=== PATIENT | female | born 1955 | race Caucasian/White ===

== ENCOUNTER 2019-05-17 00:31 | Emergency (ER) | payer MEDICARE, OTHER, SELFPAY ==
--- NOTE | ~2019-05-17 | XR_ITS ---
XR wrist RT min 3V 05/17/2019 01:05 Indication: Right wrist pain after fall Procedure: 4 views right wrist Comparison: No prior studies for comparison. Findings: Osteopenia. There is polyarticular osteoarthritis. No acute fracture or traumatic malalignm ent. There is mild soft tissue swelling dorsal to the wrist. Impression: 1: No acute fracture. Reviewed, dictated and finalized at location A. Impression: 1: No acute fracture.
[2019-05-17 00:35] VITALS: BP 154/87; PULSE 75; RESP 20; TEMP 37.4; O2SAT 98
--- NOTE | 2019-05-17 00:53 | ED.UPPEXIN ---
HPI - Extremity Injury (Upper) General Chief Complaint: Extremity Injury, Upper Stated Complaint: PAIN Time Seen by Provider: 05/17/19 00:40 Source: patient Mode of arrival: ambulatory Limitations: no limitations History of Present Illness HPI narrative: Jennifer is a 63-year-old female patient. She presents ambulatory to the emergency room. She states that yesterday at 5:00 p.m. she fell off a couple of steps and injured her right wrist. She has pain and swelling to the dorsal aspect of the right wrist. Motion is limited due to pain. She has a minor abrasion to the volar aspect of the base of the hand. She states that she is up-to-date on her tetanus shot. Rates the pain as moderate. No numbness. No other injuries. MD complaint: injury to: right and wrist Other Extremity Injury: Right: wrist Other injuries: none Handedness: right Place: home Severity: moderate Relieving factors: rest and other ( The elevation) Exacerbating factors: movement of extremity Context: fall Treatments prior to arrival: cold therapy Related Data Home Medications Medication Instructions Recorded Confirmed amlodipine 10 mg PO DAILY 05/17/19 05/17/19 atorvastatin 20 mg PO DAILY 05/17/19 05/17/19 carvedilol 25 mg PO DAILY 05/17/19 05/17/19 Allergies Allergy/AdvReac Type Severity Reaction Status Date / Time bee pollen AdvReac Unknown Verified 05/17/19 01:03 bee venom protein (honey bee) AdvReac Unknown Verified 05/17/19 01:03 Review of Systems Review of Systems: All systems reviewed & are unremarkable except as noted in HPI and below Constitutional: Constitutional: Reports as per HPI, Reports no additional constitutional complaints, Denies chills and Denies fever(s) Eyes: Eyes: Reports as per HPI, Reports no additional eye complaints and Denies change in vision ENT: Reports system reviewed and no additional complaints, except as documented, Reports as per HPI, Denies nasal congestion and Denies sore throat Cardiovascular: Cardiovascular: Reports as per HPI, Reports no additional cardiovascular complaints, Denies chest pain and Denies radiating jaw, neck or arm pain Respiratory: Respiratory: Reports as per HPI, Reports no additional respiratory complaints, Denies cough and Denies dyspnea Gastrointestinal: Gastrointestinal: Reports as per HPI, Reports no additional gastrointestinal complaints, Denies abdominal pain, Denies nausea and Denies vomiting Genitourinary: Genitourinary: Reports no additional female genitourinary complaints Musculoskeletal: Musculoskeletal: Reports no additional musculoskeletal complaints Comments: right wrist pain Integumentary/Breasts: Skin/Breast: Reports system reviewed and no additional complaints, except as docu, Denies erythema and Denies rash Comments: abrasion to base of right Neurologic: Reports system reviewed and no additional complaints, except as documented, Denies dizziness, Denies syncope, Denies headache(s), Denies focal weakness, Denies numbness and Denies weakness Psychiatric: Psychiatric: Reports no additional psychiatric complaints and Denies anxiety Endocrine: Endocrine: Reports no additional endocrine complaints, Denies polydipsia and Denies polyuria Hematologic/Lymphatic: Hematologic/Lymphatic: Reports no additional hematologic/lymphatic complaints, Reports as per HPI, Denies easy bleeding and Denies easy bruising Allergic/Immunologic: Allergic/Immunologic: Reports no additional allergic/immunologic complaints and Reports as per HPI PMFSH Past Medical History Medical History (Updated 05/17/19 @ 01:42 by Garrick Rudd MD) Hypercholesterolemia Hypertension Surgical History Surgical History (Updated 05/17/19 @ 00:59 by Garrick Rudd MD) History of dental surgery Social History Social History (Updated 05/17/19 @ 00:59 by Garrick Rudd MD) Additional smoking assessment comments: does not smoke Alcohol use details: does not use alcohol Exam Const
--- NOTE | 2019-05-17 01:41 | PC.NURSE ---
jose wrap applied to right wrist. pt declined ice pack upon arrival to er . offered again at discharge. states has at home.
== END 2019-05-17 01:45 | disposition home or self-care (01) ==
PROVIDERS: Emergency Provider Surgery; PCP Internal Medicine
DX: S63.501A Unspecified sprain of right wrist, initial encounter (principal); W10.9XXA Fall (on) (from) unspecified stairs and steps, initial encounter
CPT/HCPCS: 73110; 99282; 99283

== ENCOUNTER 2019-12-02 10:31 | Outpatient (CLI) | payer MEDICARE, OTHER, SELFPAY ==
--- NOTE | ~2019-12-02 | MM_ITS ---
EXAMINATION: MM screening ja BI w davian HISTORY: Screening mammogram TECHNIQUE: Craniocaudal and mediolateral oblique 3-D tomosynthesis images were obtained and synthetic 2-D images were generated. CAD analysis was submitted and interpreted. COMPARISON: 11/20/2018, 11/18/2017, 11/14/2016 bilateral digital screening mammogram examinations BREAST PARENCHYMAL COMPOSITION: The breasts are heterogeneously dense, which may obscure small masses . FINDINGS: There is no evidence of suspicious mass, calcification, or architectural distortion to sugg est malignancy in either breast. There has been no suspicious interval change. IMPRESSION: 1. No mammographic evidence of malignancy. 2. Recommend routine screening mammography in one year. BI-RADS Category 1: Negative Reviewed, dictated and finalized at location A.
== END 2019-12-02 10:32 | disposition home or self-care (01) ==
LOC: CHSIMG 10:34
PROVIDERS: PCP Internal Medicine; Visit Provider Internal Medicine
DX: Z12.31 Encounter for screening mammogram for malignant neoplasm of breast (principal)
CPT/HCPCS: 77063; 77067

== ENCOUNTER → 2020-07-11 00:04 | Outpatient (CLI) | payer MEDICARE, SELFPAY ==
[2020-07-11 19:16] LABS: SARS-CoV-2 RNA PCR Negative
== END ==
PROVIDERS: PCP Internal Medicine; Visit Provider Surgery
DX: Z01.812 Encounter for preprocedural laboratory examination (principal); Z20.822 Contact with and (suspected) exposure to COVID-19
CPT/HCPCS: C9803; U0003; U0005

== ENCOUNTER 2020-07-14 01:20 | Day surgery (SDC) | payer MEDICARE, SELFPAY ==
[2020-07-04 11:04] VITALS: BMI 35.2
--- NOTE | 2020-07-13 11:29 | WPDANESEPPF ---
Anes - Initial Pre Proc Eval Procedure: Operation Date: 07/14/20 07:30 Proposed Procedures p Screening Colonoscopy - Manuel Gallardo DO Date/Time: 07/13/20 11:29 Surgeon: Manuel Gallardo DO Pre Op Diagnosis: Neoplasm Screening Patient Data Age: 64 Gender: F Height: 1.52 m Weight: 81.8 kg Allergies Allergy/AdvReac Type Severity Reaction Status Date / Time hornet venom Allergy Swelling Verified 07/14/20 06:14 Home Medications Medication Instructions Recorded Confirmed Type amlodipine 10 mg PO DAILY 05/17/19 07/04/20 History atorvastatin 20 mg PO DAILY 05/17/19 07/04/20 History carvedilol 25 mg PO BID 05/17/19 07/04/20 History alendronate 70 mg PO DAILY 07/04/20 07/04/20 History aspirin [Adult Low Dose Aspirin] 81 mg PO DAILY 07/04/20 07/04/20 History Patient hx anesthesia problems: none Family hx anesthesia problems: none [facility] Past Medical History Medical History (Updated 05/18/19 @ 00:00 by Martin Locke) Hypercholesterolemia Hypertension Surgical History Surgical History (Updated 05/17/19 @ 00:59 by Garrick MorganMD) History of dental surgery Social History Social History (Updated 05/17/19 @ 00:59 by Garrick MorganMD) Smoking status: Never smoker Additional smoking assessment comments: does not smoke Substance use type: does not use Living arrangements: with family Gender identity (if verbalized by the patient): Female Spiritual care concerns: No Anes - Eval Final PreProcedure Day of Procedure 07/13/20 11:29 Patient weight: obese Heart: regular rate and rhythm Lungs: clear to auscultation and normal air movement Airway: Mallampati scale class III Neurological: alert and oriented Last oral intake: >/= 8 hours ASA classification: III Emergent: no Anesthetic plan: proceed Anesthesia type and monitoring: general GIVS and standard monitoring Informed Consent: The patient's anesthetic plan and its attendant risks and benefits were discussed with the patient/family/POA. Questions were solicited and answers provided to the satisfaction of the patient/family/POA.
[2020-07-14 06:16] VITALS: BP 144/86; PULSE 71; RESP 20; TEMP 36.5; O2SAT 98
[2020-07-14] MEDS: LACTATED RINGERS 1,000 ML 150 ML IV CONT (06:30)
--- NOTE | 2020-07-14 07:32 | PM.IMHP ---
H&P: HPI History of Present Illness Date/Time: 07/14/20 07:32 Chief Complaint: Screening for colon cancer Narrative: this is a 64-year-old woman who presents for her 1st colonoscopy. She denies any hematochezia or melena. She denies family history of colon cancer. Review of Systems Review of Systems: All systems reviewed & are unremarkable except as noted in HPI and below Constitutional: Constitutional: Denies chills, Denies fever(s), Denies headache(s) and Denies weight loss Eyes: Eyes: Denies change in vision ENT: Denies dizziness, Denies headache(s), Denies neck mass and Denies throat swelling Cardiovascular: Cardiovascular: Denies chest pain, Denies lightheadedness and Denies dyspnea Respiratory: Respiratory: Denies cough, Denies dyspnea and Denies wheezing Gastrointestinal: Gastrointestinal: Denies abdominal pain, Denies change in bowel habits, Denies nausea and Denies vomiting Genitourinary: Genitourinary: Denies hematuria and Denies dysuria Musculoskeletal: Musculoskeletal: Reports as per HPI Integumentary/Breasts: Skin/Breast: Reports as per HPI Neurologic: Denies dizziness and Denies headache(s) Allergic/Immunologic: Allergic/Immunologic: Denies throat swelling and Denies wheezing PMFSH Past Medical History Medical History (Updated 07/14/20 @ 07:33 by Manuel Gallardo DO) Hypercholesterolemia Hypertension Surgical History Surgical History (Updated 05/17/19 @ 00:59 by Garrick MorganMD) History of dental surgery Social History Social History (Updated 05/17/19 @ 00:59 by Garrick MorganMD) Smoking status: Never smoker Additional smoking assessment comments: does not smoke Substance use type: does not use Living arrangements: with family Gender identity (if verbalized by the patient): Female Spiritual care concerns: No Meds Home Medications and Allergies Home Medications Medication Instructions Recorded Confirmed Type amlodipine 10 mg PO DAILY 05/17/19 07/04/20 History atorvastatin 20 mg PO DAILY 05/17/19 07/04/20 History carvedilol 25 mg PO BID 05/17/19 07/04/20 History alendronate 70 mg PO DAILY 07/04/20 07/04/20 History aspirin [Adult Low Dose Aspirin] 81 mg PO DAILY 07/04/20 07/04/20 History Allergies Allergy/AdvReac Type Severity Reaction Status Date / Time hornet venom Allergy Swelling Verified 07/14/20 06:14 Vital Signs Vital Signs - 24 hr 07/14/20 06:16 Temperature 36.5 C Pulse Rate 71 Respiratory Rate 20 Blood Pressure 144/86 H Pulse Oximetry 98 Exam Const: General: no acute distress and alert Orientation/consciousness: patient oriented x3 HENMT: Head: normocephalic and atraumatic Ears: hearing grossly normal bilaterally General nose exam: Normal nares present Mouth: Yes Normal oral and palatal mucosa present Eyes: Periorbital: periorbital findings normal Sclera: sclerae normal EOM: EOMs intact bilaterally Neck: Neck: normal visual inspection, no lymphadenopathy and trachea midline Chest: Chest palpation & inspection: normal inspection of the chest Resp: Effort & Inspection: normal respiratory effort Auscultation: clear to auscultation bilaterally Cardio: Jugular venous distension: no JVD Rate: regular rate Rhythm: regular rhythm Heart sounds: S1 normal heart sound present and S2 normal heart sound present Peripheral pulses: Peripheral pulses 2+ throughout GI: Inspection: normal to inspection GI Palp: Yes Soft to palpation, No Tenderness to palpation present (GI), No Guarding due to palpation present (GI) and No Rebound tenderness present Percussion: Yes normal to percussion Auscultation: normal bowel sounds : General: Yes no CVA tenderness Back/Spine/Pelvis: Back: no CVA tenderness Neuro: General: patient oriented x3, no focal motor deficits and CN's II-XI intact bilaterally Cognition (Neuro): normal cognition Speech: normal speech Motor exam (neuro): 5/5 motor strength present throughout Ext
[2020-07-14 07:54] VITALS: BP 87/44; PULSE 66; RESP 23; O2SAT 98
[2020-07-14 08:04] VITALS: BP 94/46; PULSE 73; RESP 22; O2SAT 99
== END 2020-07-14 08:27 | disposition home or self-care (01) ==
PROVIDERS: PCP Internal Medicine; Visit Provider Surgery
PROC: 0DJD8ZZ Inspection of Lower Intestinal Tract, Via Natural or Artificial Opening Endoscopic (ICD-10-PCS; CPT 45378; principal; 2020-07-14 07:30)
DX: Z12.11 Encounter for screening for malignant neoplasm of colon (principal); K92.1 Melena; E78.00 Pure hypercholesterolemia, unspecified; I10 Essential (primary) hypertension; Z79.82 Long term (current) use of aspirin; E66.9 Obesity, unspecified; Z68.37 Body mass index [BMI] 37.0-37.9, adult
CPT/HCPCS: G0121; C9803; J2704; J7120; U0003; U0005

== ENCOUNTER 2020-12-06 12:48 | Outpatient (CLI) | payer MEDICARE, SELFPAY ==
--- NOTE | ~2020-12-06 | DEXA_ITS ---
Bone Density Report Name: Jennifer Calvillo Age: 64 Sex: Female Ethnicity: White Date of : 1955 Indication: postmenopausal osteoporosis; monitoring treatment; parental hip fracture; height loss; Referring Provider: Yarelis Antoine Study: Bone densitometry was performed. Exam Date: December 06, 2020 Accession number: [id number] Bone Density: Region BMD T-score Z-score Classification AP Spine(L1-L4) 0.762 -2.6 -0.7 Osteoporosis Femoral Neck (Left) 0.589 -2.3 -0.7 Osteopenia Total Hip (Left) 0.789 -1.3 0.1 Osteopenia Femoral Neck (Right) 0.523 -2.9 -1.3 Osteoporosis Total Hip (Right) 0.724 -1.8 -0.5 Osteopenia Femoral Neck Mean 0.556 -2.6 -1.0 Osteoporosis Total Hip Mean 0.757 -1.5 -0.2 Osteopenia World Health Organization criteria for BMD impression classify patients as: Normal (T-score at or above -1.0), Osteopenia (T-score between -1.0 and -2.5), or Osteoporosis (T-score at or below -2.5). 10-year Fracture Risk: FRAX not reported because: Some T-score for Spine Total or Hip Total or Femoral Neck at or below -2.5 Treated for osteoporosis Previous Exams: Region Exam Age BMD T-score BMD Change BMD Change Date g/cm2 vs Baseline vs Previous AP Spine (L1-L4) 12/06/2020 64 0.762 -2.6 -0.010 (-1.3%) 0.036 (5.0%)# 11/20/2018 62 0.725 -2.9 -0.046 (-5.9%) -0.046 (-5.9%) 11/14/2016 60 0.771 -2.5 Total Hip(Left) 12/06/2020 64 0.789 -1.3 -0.002 (-0.2%) 0.027 (3.6%)# 11/20/2018 62 0.762 -1.5 -0.029 (-3.7%) -0.029 (-3.7%) 11/14/2016 60 0.791 -1.2 Total Hip(Right) 12/06/2020 64 0.724 -1.8 0.069 (10.5%)# 0.069 (10.5%)# 11/20/2018 62 0.655 -2.4 *Denotes significance at 95% confidence level, LSC for AP Spine = 0.022 g/cm2, LSC for Total Hip = 0.027 g/cm2 # Denotes dissimilar scan types or analysis methods Clinical Information Provided by Patient: Parent has had a hip fracture Is being treated for osteoporosis Patient maximum height was 61 No regular weight bearing exercise Onset of menses at age 10 Impression: The patient has osteoporosis, based on the Right Femoral Neck T-score. The patient has risk factors, including: parental hip fracture. No significant bone loss was observed. Discussion: PATIENT UNDER TREATMENT WITH NO SIGNIFICANT BMD LOSS SINCE LAST EXAM. In an untreated patient, BMD typically declines with age. A lack of decline or gain is usually a sign that treatment is effi
--- NOTE | ~2020-12-06 | MM_ITS ---
EXAMINATION: MM screening [facility] BI w davian HISTORY: Screening TECHNIQUE: Craniocaudal and mediolateral oblique 3-D tomosynthesis images were obtained and synthetic 2-D images were generated. CAD analysis was submitted and interpreted. COMPARISON: Comparison to multiple prior studies sequentially, with oldest reviewed study dated 08/2016. BREAST PARENCHYMAL COMPOSITION: There are scattered areas of fibroglandular density. FINDINGS: There is no evidence of suspicious mass, calcification, or architectural distortion to sugg est malignancy in either breast. There has been no suspicious interval change. IMPRESSION: 1. No mammographic evidence of malignancy. 2. Recommend routine screening mammography in one year. BI-RADS Category 1: Negative Reviewed, dictated and finalized at location A.
== END 2020-12-06 12:49 | disposition home or self-care (01) ==
LOC: CHSIMG 12:50
PROVIDERS: PCP Internal Medicine; Visit Provider Internal Medicine
DX: Z12.31 Encounter for screening mammogram for malignant neoplasm of breast (principal); M81.0 Age-related osteoporosis without current pathological fracture
CPT/HCPCS: 77063; 77067; 77080

== ENCOUNTER 2021-12-02 17:38 | Inpatient (IN) | payer MEDICARE, SELFPAY ==
--- NOTE | ~2021-12-02 | XR_ITS ---
EXAMINATION: XR surgery orthopedic DATE: 12/04/2021 17:14 INDICATION: Intertrochanteric nailing at the right hip TECHNIQUE: 4 fluoroscopic images of the right hip were obtained during procedure performed by Dr. Mallika new. Radiologist was not present for the imaging or procedure. The amount of fluoroscopy time used d uring this procedure was 6.4 minutes. COMPARISON: 12/02/2021 FINDINGS: Interval reduction and internal fixation of the previously noted intratrochanteric fracture of the proximal right femur. The fracture is fixed with an antegrade intramedullary mimi with distal interlocking screw and a pair of screws extending through the mimi into the femoral neck and head. The re is approximately 1 cortical width of residual lateral and proximal displacement of the main distal fragment relative to the femoral neck. No significant change in approximately 2 cm medial distractio n of the lesser trochanteric fragment which is not included within the fixation. No new fractures susan ntified. Widening of the right hip joint suggesting traction upon the right leg. IMPRESSION: 1. Expected appearance during open reduction and internal fixation of a comminuted intratrochanteric fracture of the proximal right femur. Reviewed, dictated and finalized at location A. IMPRESSION: 1. Expected appearance during open reduction and internal fixation of a comminu terry intratrochanteric fracture of the proximal right femur.
--- NOTE | ~2021-12-02 | XR_ITS ---
XR hip RT 2V w AP pelvis DATE: 12/02/2021 19:11 INDICATION: Anterior and lateral right hip pain after a fall. Leg externally rotated. TECHNIQUE: AP pelvis. AP and lateral views of right hip COMPARISON: None FINDINGS: There is a comminuted intra-articular fracture of the right femur with minimal displacement of the major proximal and distal fragments, some displacement of the lesser and greater trochanteric fragments, and varus deformity. The pubic symphysis and sacral iliac joints are intact. Moderate osteopenia. Hip joint spaces appear symmetric and relatively preserved. IMPRESSION: Comminuted intertrochanteric fracture of the right hip Reviewed, dictated and finalized at location A.
--- NOTE | ~2021-12-02 | XR_ITS ---
XR chest 1V DATE: 12/02/2021 19:11 INDICATION: Fall today TECHNIQUE: AP chest COMPARISON: None FINDINGS: Cardiomegaly. Aortic calcification and unfolding. No pulmonary infiltrate or consolidation, pleural effusion or pulmonary vascular congestion or pneumo thorax is detected. Diffuse osteopenia. Degenerative spurring of the thoracic spine. IMPRESSION: Cardiomegaly, aortic atherosclerosis No active pulmonary disease Osteopenia Reviewed, dictated and finalized at location A.
--- NOTE | ~2021-12-02 | XR_ITS ---
XR knee RT 2V DATE: 12/02/2021 19:12 INDICATION: Right diffuse knee pain following fall today. Chronic knee pain. TECHNIQUE: AP and lateral views COMPARISON: 10/10/2016 right knee FINDINGS: Possible corticated loose body in the posterior aspect of the knee joint. There is depressi on of the posterior articular surface of the proximal tibia on the lateral view. There is severe narrowing and prominent particular spurring at the medial compartment joint space. Th ere is periarticular spurring at the patellofemoral and lateral compartments. No obvious large joint effusion is detected. Osteopenia. IMPRESSION: Possible bony loose fragment in the posterior joint space. Consider MR of the knee for fu rther evaluation. CT may be of benefit. Tricompartment osteophytosis, most severe at the medial compartment Reviewed, dictated and finalized at location A. IMPRESSION: Possible bony loose fragment in the posterior joint space. Consider MR of the knee for further evaluation. CT may be of benefit. Tricompartment osteophytosis, most severe at the medial compartment
--- NOTE | ~2021-12-02 | CT_ITS ---
EXAMINATION: CT knee RT wo con DATE: 12/03/2021 09:46 INDICATION: Right knee pain after fall. Possible loose body on x-ray. TECHNIQUE: Computed tomography (CT) of the right knee was performed without intravenous contrast. The dose-length product was 551.89 mGy-cm. Automated exposure control and iterative reconstruction techn [employer] were employed. COMPARISON: X-ray dated 12/02/2021 FINDINGS: There is severe tricompartment osteoarthritis. There are prominent marginal osteophytes. Sm all joint effusion. There is a small corticated loose body along the posterior margin of the joint sp jose corresponding to the ossific density seen on x-ray. This likely relates to degenerative change. N o acute fracture is identified. IMPRESSION: 1. No acute fracture. 2: Severe tricompartment osteoarthritis with loose body along the posterior joint space corresponding to the x-ray finding. 3: Small joint effusion. Reviewed, dictated and finalized at location A. IMPRESSION: 1. No acute fracture. 2: Severe tricompartment osteoarthritis with loose body along the posterior uzair nt space corresponding to the x-ray finding. 3: Small joint effusion.
[2021-12-02 17:37] VITALS: BP 174/68; PULSE 75; RESP 18; TEMP 36.4; O2SAT 99
--- NOTE | 2021-12-02 17:59 | ED.LOWEXIN ---
HPI - Extremity Injury (Lower) General Chief Complaint: Extremity Injury, Lower Stated Complaint: R HIP / FEMUR S/P GLF Time Seen by Provider: 12/02/21 17:40 Source: patient Mode of arrival: EMS Limitations: no limitations History of Present Illness HPI Narrative: This is a 65 year old female that presents to the ER for right hip pain after a fall today. Reports she has been using crutches because her right knee has been bothering her. There is no recent injury to the knee. Reports she lost her balance using her crutches walking out dinner tonight. She fell onto her right hip. Since she has had pain in the right hip laterally. Worse with movement and relieved with rest. Reports decreased range of motion due to pain. Denies hitting her head, loss of consciousness, prodromal symptoms, or numbness. Related Data Home Medications Medication Instructions Recorded Confirmed amlodipine 10 mg tablet 10 mg PO DAILY 05/17/19 07/04/20 atorvastatin 20 mg tablet 20 mg PO DAILY 05/17/19 07/04/20 carvedilol 12.5 mg tablet 25 mg PO BID 05/17/19 07/04/20 alendronate 70 mg tablet 70 mg PO DAILY 07/04/20 07/04/20 aspirin 81 mg tablet 81 mg PO DAILY 07/04/20 07/04/20 Allergies Allergy/AdvReac Type Severity Reaction Status Date / Time hornet venom Allergy Swelling Verified 07/14/20 06:14 Review of Systems Review of Systems: CONSTITUTIONAL: Denies fever CARDIOVASCULAR: Denies chest pain, palpitations RESPIRATORY: Denies dyspnea. MUSCULOSKELETAL: Reports joint pain and myalgia. Denies back pain NEUROLOGIC: Denies numbness All systems reviewed & are unremarkable except as noted in HPI and below PMFSH Past Medical History Medical History (Updated 12/02/21 @ 22:29 by Felisha Yo PA-C) Hypercholesterolemia Hypertension Surgical History Surgical History (Updated 05/17/19 @ 00:59 by Garrick RuddMD) History of dental surgery Social History Social History (Updated 05/17/19 @ 00:59 by Garrick RuddMD) Smoking status: Never smoker Additional smoking assessment comments: does not smoke Alcohol use details: does not use alcohol Substance use type: does not use Gender identity (if verbalized by the patient): Female Spiritual care concerns: No Exam Narrative: GENERAL: Well-appearing, well-nourished, and in no acute distress. HEAD: Normocephalic, atraumatic. EYES: PERRLA and EOMI. ENT: Nares clear, no rhinorrhea or epistaxis. Mucous membranes moist. Oropharynx without tonsillar hypertrophy exudate or other lesions. NECK: Supple. No adenopathy or masses. No midline cervical spine tenderness CHEST: Clear to auscultation. No respiratory distress. No wheezes rales or rhonchi HEART: Regular rate and rhythm. No murmur heard. Normal peripheral pulses. EXTREMITIES: Normal range of motion, except decreased active ROM in the right knee and hip due to pain. Normal DP pulse. Normal sensation. No edema. SKIN: Warm, dry, no rash. NEURO: No focal deficits. Alert and oriented x3. PSYCH: Normal mood and affect Course Consultations Consultation #1: Spoke with Dr. Cruz about patient and work-up. Patient is to be admitted for further management of hip fracture Date: 12/02/21 Consultation #2: Spoke with hospitalist about patient and work-up who accepts admission Date: 12/02/21 Vital Signs Vital signs: Vital Signs Temperature 97.6 F 12/02/21 17:37 Pulse Rate 75 12/02/21 17:37 Respiratory Rate 18 12/02/21 17:37 Blood Pressure 174/68 H 12/02/21 17:37 Pulse Oximetry 99 12/02/21 17:37 Oxygen Delivery Room Air 12/02/21 17:37 Temperature 97.6 F 12/02/21 17:37 Pulse Rate 71 12/02/21 22:12 Respiratory Rate 16 12/02/21 22:12 Blood Pressure 126/73 12/02/21 22:12 Pulse Oximetry 97 12/02/21 22:12 Oxygen Delivery Room Air 12/02/21 17:37 MDM - Extremity Injury (Lower) MDM Narrative Medical decision making narrative: Patient presents the emergency department f
[2021-12-02] MEDS: MORPHINE SULFATE (*CRX) 4 MG/ML INJ IV PUSH (18:46)
--- NOTE | 2021-12-02 19:15 | ECG_ITS ---
Measurements Intervals [place] Rate: 70 P: 42 CA: 174 QRS: -3 QRSD: 96 T: 52 QT: 381 QTc: 413 Interpretive Statements SINUS RHYTHM INCOMPLETE RIGHT BUNDLE BRANCH BLOCK LOW QRS VOLTAGE IN PRECORDIAL LEADS BORDERLINE ECG NO PREVIOUS ECG AVAILABLE FOR COMPARISON Electronically Signed On 12-02-2021 21:37:49 CDT by Ang Garcia D.O.
[2021-12-02 19:17] VITALS: BP 145/68; PULSE 72; RESP 16; O2SAT 99
--- NOTE | 2021-12-02 19:17 | PC.NURSE ---
Assumed care of pt at this time. Pt alert and supine on stretcher, no request at this time. Pt and family updated on POC.
[2021-12-02 19:44] LABS: Basophils Absolute Auto 0.1 K/mm3 (0.0-0.1); Basophils Percent Auto 1.2 % (0.2-1.2); Eosinophils Absolute Auto 0.1 K/mm3 (0-0.3); Eosinophils Percent Auto 0.6 % (0-4.4); Hematocrit 37.4 % (37.0-47.0); Hemoglobin 12.5 g/dL (12.0-15.0); Immature Granulocyte Absolute 0.04 K/mm3 (0.00-0.031); Immature Granulocyte Percent A 0.5 % (0-0.5); Lymphocytes Absolute Auto 1.02 K/mm3 (0.9-3.2); Lymphocytes Percent Auto 12.5 % (18.3-44.2); Mean Corpuscular HGB Conc 33.4 g/dl (32-36); Mean Corpuscular Hemoglobin 32.2 pg (26-34); Mean Corpuscular Volume 96.4 fl (80-100); Mean Platelet Volume 9.8 fl (7.4-10.4); Monocytes Absolute Auto 0.6 K/mm3 (0.1-0.6); Monocytes Percent Auto 7.2 % (2.6-8.5); Neutrophils Absolute Auto 6.4 K/mm3 (1.3-6.7); Platelet Count Result 222 k/mm3 (150-375); Red Blood Count 3.88 M/mm3 (4.2-5.4); Red Cell Distribution Width 12.3 % (11.5-14.5); White Blood Count 8.2 K/mm3 (4.5-10.0)
[2021-12-02 19:56] LABS: Anion Gap 10 mmol/L (8-16); Blood Urea Nitrogen 20 mg/dL (7-17); Calcium 8.9 mg/dL (8.4-10.2); Carbon Dioxide 23 mmol/L (22-30); Chloride 106 mmol/L (98-107); Estimated CRCL calculation 41 ml/min; Estimated Glomerular Filt Rate 45; Glucose 115 mg/dL (65-110); Sodium 139 mmol/L (137-145)
[2021-12-02 20:39] VITALS: BP 147/72; PULSE 69; RESP 18; O2SAT 99
--- NOTE | 2021-12-02 21:01 | PM.IMHP ---
H&P: HPI History of Present Illness Date/Time: 12/02/21 21:01 Chief Complaint: R hip pain Narrative: This is a 65-year-old female with past medical history significant for hypertension, osteoporosis, dyslipidemia, obesity. patient presents to the emergency room after she had a fall while using her crutches she has been using crutches as of lately due to a but knee she lost her balance and fell over her right-sided unable to get up on her on EMS was called and patient was brought to the emergency room. Patient denies any loss of consciousness, she has been her usual state of health prior to these no fevers, no rigors, no chills, no cough, no sputum production, no nausea, no vomiting, no abdominal pain. patient with limited range of motion of the right lower extremity unable to bear weight on it and extreme pain with movement. Preliminary workup was significant for xray of the pelvis: IMPRESSION: Comminuted intertrochanteric fracture of the right hip patient has been admitted for further evaluation management and treatment. Review of Systems Review of Systems: Fall, unable to bear weight on right leg, unable to stand up, limited range of motion of right hip, pain with movement. Constitutional: Constitutional: Denies chills, Denies fatigue, Denies fever(s), Denies malaise, Denies night sweats, Denies poor appetite and Denies weakness Eyes: Eyes: Denies change in vision ENT: Denies dysphagia, Denies vertigo, Denies dizziness, Denies odynophagia and Denies disequilibrium Cardiovascular: Cardiovascular: Denies chest pain, Denies syncope, Denies irregular heart rhythm, Denies lightheadedness, Denies palpitations and Denies dyspnea on exertion Respiratory: Respiratory: Denies chest congestion, Denies cough, Denies excessive phlegm production, Denies pain on inspiration, Denies dyspnea and Denies dyspnea on exertion Gastrointestinal: Gastrointestinal: Denies abdominal pain, Denies dyspepsia, Denies heartburn, Denies nausea and Denies vomiting Genitourinary: Genitourinary: Denies dysuria Musculoskeletal: Musculoskeletal: Reports abnormal gait, Denies myalgias, Reports arthralgias ( Right lower extremity) and Reports limited range of motion Integumentary/Breasts: Skin/Breast: Denies rash Neurologic: Denies vertigo, Denies dizziness, Denies focal weakness and Denies Sensory deficit (Neuro) Psychiatric: Psychiatric: Reports no additional psychiatric complaints and Reports as per HPI Endocrine: Endocrine: Denies cold intolerance, Denies flushing, Denies heat intolerance, Denies polyphagia, Denies polydipsia and Denies palpitations Hematologic/Lymphatic: Hematologic/Lymphatic: Reports no additional hematologic/lymphatic complaints and Reports as per HPI Allergic/Immunologic: Allergic/Immunologic: Reports no additional allergic/immunologic complaints and Reports as per HPI PMFSH Past Medical History Medical History (Updated 12/03/21 @ 03:50 by Gianna Romero MD) Hypercholesterolemia Hypertension Surgical History Surgical History (Updated 05/17/19 @ 00:59 by Garrick MorganMD) History of dental surgery Social History Social History (Updated 05/17/19 @ 00:59 by Garrick MorganMD) Smoking status: Never smoker Alcohol intake: former Alcohol use details: does not use alcohol Substance use: never Substance use type: does not use Gender identity (if verbalized by the patient): Female Spiritual care concerns: No Meds Home Medications and Allergies Home Medications Medication Instructions Recorded Confirmed Type amlodipine 10 mg tablet 10 mg PO HS 05/17/19 12/03/21 History atorvastatin 20 mg tablet 20 mg PO DAILY 05/17/19 12/03/21 History carvedilol 12.5 mg tablet 12.5 mg PO BID 05/17/19 12/03/21 History alendronate 70 mg tablet 70 mg PO WEEKLY OSTEOPOROSIS 07/04/20 12/03/21 History aspirin 81 mg tablet 81 mg PO DAILY 07/04/20 12/03/21 History acetaminophen 650 mg 650 mg PO DAILY
[2021-12-02 22:12] VITALS: BP 126/73; PULSE 71; RESP 16; O2SAT 97
[2021-12-02 23:11] VITALS: BP 130/70; PULSE 67; RESP 18; O2SAT 94
[2021-12-02 23:36] VITALS: BP 122/56; PULSE 64; RESP 15; O2SAT 95
[2021-12-03] VITALS: BMI 36.5
[2021-12-03] MEDS: MORPHINE SULFATE (*CRX) 4 MG/ML INJ IV PUSH ×4 (00:07→19:59)
--- NOTE | 2021-12-03 00:12 | ADMGEN ---
This patient, Jennifer Calvillo, was admitted to 3 Med Surg Room 300-01 0000. Patient/family oriented to hospital policies and general routines including ID bracelet, bed and alarms, visiting hours, pain management, procedures, bathroom and other care routines, personal items, smoking policy, room service/diet, and visiting hours. Information on how to activate the Rapid Response Team has been discussed. Patient/Family are encouraged to report perceived risks to care and to ask questions if they do not understand what they are told or what they should do.
[2021-12-03 00:33] VITALS: BMI 36.5
[2021-12-03 08:00] VITALS: BP 133/63; PULSE 73; RESP 16; TEMP 36.5; O2SAT 95
[2021-12-03] MEDS: PANTOPRAZOLE SODIUM IV 40 MG VIAL IV PUSH (08:12)
--- NOTE | 2021-12-03 11:00 | PM.IMPN ---
Progress Note: A&P Assessment and Plan (1) Closed intertrochanteric fracture: Qualifiers: Encounter type: initial encounter Fracture alignment: displaced Laterality: right Qualified Code(s): S72.141A - Displaced intertrochanteric fracture of right femur, initial encounter for closed fracture Code(s): S72.143A - Displaced intertrochanteric fracture of unspecified femur, initial encounter for closed fracture Status: Acute Assessment and Plan: Hip and pelvis xray shows intertrochanteric fracture of the right hip Bed rest Ortho consulted Pain medications morphine 2mg IV Q4H, Tylenol 1000mg PO Q6H, [place] 5/325 PO Q4H 1 tab Zofran for nausea Ortho for DVT prophylaxis (2) Hypercholesterolemia: Code(s): E78.00 - Pure hypercholesterolemia, unspecified Status: Acute Assessment and Plan: Continue home atorvastatin LFTs in the am Lipid panel in the am (3) Hypertension: Code(s): I10 - Essential (primary) hypertension Status: Acute Assessment and Plan: BP is 133/63 Resume home meds amlodipine and carvedilol Trend BP Adjust therapy as indicated (4) Right knee pain: Code(s): M25.561 - Pain in right knee Status: Acute Assessment and Plan: Xray show loose bone fragments, and osteoarthritis, follow up with CT or MRI CT showed no fracture, but does show osteoarthritis with loose body and small joint effusion Ortho already on the case Will probably need to follow up outpatient once hip is healed Pain control on board Time Spent With Patient Time with patient: Greater than 35 minutes Subjective Date/time seen: 12/03/21 1100 Interval history: 12/03/211099 she appears to be in good spirits. She stated that she is fine as long as she is not moving around. She states that if she is moved around or her legs are adjusted all that she does have extreme pain. She denies any chest pain, shortness of breath, nausea, vomiting, diarrhea, constipation, weakness or fatigue. 12/02/21? 21:01 ?This is a 65-year-old female with past medical history significant for hypertension, osteoporosis, dyslipidemia,? obesity. patient presents to the emergency room after she had a fall while using her crutches she has been using crutches as of lately due to a but knee she lost her balance and fell over her right-sided unable to get up on her on EMS was called and patient was brought to the emergency room.? Patient denies any loss of consciousness, she has been her usual state of health prior to these no fevers, no rigors, no chills, no cough, no sputum production, no nausea, no vomiting, no abdominal pain. patient with limited range of motion of the right lower extremity unable to bear weight on it and extreme pain with movement.? Preliminary workup was significant for xray? of the pelvis: IMPRESSION: Comminuted intertrochanteric fracture of the right hip Review of Systems Review of Systems: All systems reviewed & are unremarkable except as noted in HPI and below Exam Const: General: cooperative, healthy appearing, no acute distress, well developed, alert, awake and uncomfortable Nutritional Appearance: well nourished Orientation/consciousness: patient oriented x3 Limitations: no limitations HENMT: Head: normal to inspection Ears: hearing grossly normal bilaterally General nose exam: Normal external nose present Mouth: Yes Normal oral and palatal mucosa present, Yes lip normal and Yes tongue normal Teeth and gingiva: abnormal tooth and associated gingiva and poor dentition Eyes: General: appearance normal, both eyes and all related structures Neck: Neck: normal visual inspection, full ROM, trachea midline and supple Chest: Chest palpation & inspection: normal inspection of the chest Resp: Effort & Inspection: normal respiratory effort and able to speak in complete sentences Auscultation: clear to ausculta
--- NOTE | 2021-12-03 13:56 | PM.CNOR ---
Assessment and Plan Assessment and plan (1) Closed intertrochanteric fracture: Qualifiers: Encounter type: initial encounter Fracture alignment: displaced Laterality: right Qualified Code(s): S72.141A - Displaced intertrochanteric fracture of right femur, initial encounter for closed fracture Code(s): S72.143A - Displaced intertrochanteric fracture of unspecified femur, initial encounter for closed fracture Status: Acute Assessment and Plan: MONSERRAT IS HERE WITH A RIGHT INTERTROCHANTERIC FEMUR FRACTURE. SHE WILL REQUIRE INSERTION OF INTRAMEDULLARY ROBSON WITH DYNAMIC HIP SCREW. DISCUSSED NONOPERATIVE AND OPERATIVE TREATMENT OPTIONS WITH THE PATIENT. THE PATIENT'S QUESTIONS WERE ANSWERED. THE PATIENT DESIRES OPERATIVE TREATMENT. RISKS OF SURGERY INCLUDING BUT NOT LIMITED TO NEUROVASCULAR DAMAGE, WOUND COMPLICATIONS, BLOOD CLOT, PULMONARY EMBOLUS, STROKE, WI, ANESTHETIC RISKS UP TO AND INCLUDING WERE REVIEWED. CONTINUED PAIN AND POSSIBLE DYSFUNCTION WERE EXPLAINED. NO GUARANTEES WERE OFFERED. THE PATIENT UNDERSTANDS AND WISHES TO PROCEED. WE WILL PROCEED ONCE SHE IS CLEARED BY THE MEDICINE TEAM History of Present Illness HPI Consult date: 12/03/21 Chief complaint: Right hip intertrochanteric fracture Narrative: MONSERRAT WAS WALKING WITH CRUTCHES AND TRIPPED AND FELL ON HER RIGHT HIP. SHE HAD SEVERE PAIN AND WAS BROUGHT TO [facility]. SHE WAS DIAGNOSED WITH A RIGHT INTERTROCHANTERIC FEMUR FRACTURE. SHE C/O RIGHT HIP AND KNEE PAIN. SHE DENIES ANY OTHER EXTREMITY PAIN. DENIES ANY BACK OR NECK PAIN. SHE DENIES ANY NLOSS OF CONCIOUSNESS. Review of Systems Constitutional: Constitutional: Reports no additional constitutional complaints Cardiovascular: Cardiovascular: Reports no additional cardiovascular complaints Respiratory: Respiratory: Reports no additional respiratory complaints Gastrointestinal: Gastrointestinal: Reports no additional gastrointestinal complaints Neurologic: Reports system reviewed and no additional complaints, except as documented Psychiatric: Psychiatric: Reports no additional psychiatric complaints [facility] Past Medical History Medical History Hypercholesterolemia Hypertension Surgical History Surgical History History of dental surgery Social History Social History Smoking status: Never smoker Alcohol intake: former Alcohol use details: does not use alcohol Substance use: never Substance use type: does not use Gender identity (if verbalized by the patient): Female Spiritual care concerns: No Meds Home Medications and Allergies Home Medications Medication Instructions Recorded Confirmed Type amlodipine 10 mg tablet 10 mg PO HS 05/17/19 12/03/21 History atorvastatin 20 mg tablet 20 mg PO DAILY 05/17/19 12/03/21 History carvedilol 12.5 mg tablet 12.5 mg PO BID 05/17/19 12/03/21 History alendronate 70 mg tablet 70 mg PO WEEKLY OSTEOPOROSIS 07/04/20 12/03/21 History aspirin 81 mg tablet 81 mg PO DAILY 07/04/20 12/03/21 History acetaminophen 650 mg 650 mg PO DAILY ARTHRITIS 12/03/21 12/03/21 History tablet,extended release Allergies Allergy/AdvReac Type Severity Reaction Status Date / Time hornet venom Allergy Swelling Verified 12/03/21 00:14 Vital Signs Vital Signs - 24 hr 12/02/21 17:37 12/02/21 19:17 12/02/21 20:39 Temperature 36.4 C Pulse Rate 75 72 69 Respiratory Rate 18 16 18 Blood Pressure 174/68 H 145/68 H 147/72 H Pulse Oximetry 99 99 99 Oxygen Delivery Room Air 12/02/21 22:12 12/02/21 23:11 12/02/21 23:36 Temperature Pulse Rate 71 67 64 Respiratory Rate 16 18 15 Blood Pressure 126/73 130/70 122/56 L Pulse Oximetry 97 94 95 Oxygen Delivery 12/03/21 08:00 12/03/21 08:00 Temperature 36.5 C Pulse Rate 73 Respiratory Rate 16 Blood P
[2021-12-03 14:34] VITALS: BP 138/66; PULSE 72; RESP 16; TEMP 36.6; O2SAT 100
[2021-12-03 15:58] VITALS: PULSE 68
[2021-12-03] MEDS: carvediloL 12.5 MG TABLET PO (15:58)
[2021-12-03] MEDS: amLODIPine BESYLATE 5 MG TABLET 10 MG PO (20:08)
[2021-12-03 22:00] VITALS: BP 152/62; PULSE 69; RESP 20; TEMP 36.5; O2SAT 94
[2021-12-04] VITALS (11 sets, daily range): BP systolic 124–152; BP diastolic 65–73; PULSE 70–84; RESP 16–20; TEMP 36.3–36.5; O2SAT 94–100
[2021-12-04 06:43] LABS: Basophils Absolute Auto 0.1 K/mm3 (0.0-0.1); Basophils Percent Auto 0.9 % (0.2-1.2); Eosinophils Absolute Auto 0.2 K/mm3 (0-0.3); Eosinophils Percent Auto 2.2 % (0-4.4); Hematocrit 34.2 % (37.0-47.0); Hemoglobin 11.3 g/dL (12.0-15.0); Immature Granulocyte Absolute 0.03 K/mm3 (0.00-0.031); Immature Granulocyte Percent A 0.4 % (0-0.5); Lymphocytes Absolute Auto 1.03 K/mm3 (0.9-3.2); Lymphocytes Percent Auto 13.4 % (18.3-44.2); Mean Corpuscular Hemoglobin 32.3 pg (26-34); Mean Corpuscular Volume 97.7 fl (80-100); Mean Platelet Volume 10.6 fl (7.4-10.4); Monocytes Absolute Auto 0.9 K/mm3 (0.1-0.6); Monocytes Percent Auto 11.6 % (2.6-8.5); Neutrophils Absolute Auto 5.5 K/mm3 (1.3-6.7); Neutrophils Percent Auto 71.5 % (45.5-73.1); Platelet Count Result 174 k/mm3 (150-375); Red Cell Distribution Width 12.2 % (11.5-14.5); White Blood Count 7.7 K/mm3 (4.5-10.0)
[2021-12-04 06:58] LABS: Alanine Aminotransferase 12 U/L (6-35); Albumin Level 3.6 g/dL (3.5-5.1); Alkaline Phosphatase 62 U/L (38-126); Anion Gap 12 mmol/L (8-16); Aspartate Amino Transferase 24 U/L (14-36); Bilirubin,Total 0.6 mg/dL (0.2-1.3); Blood Urea Nitrogen 12 mg/dL (7-17); Calcium 8.3 mg/dL (8.4-10.2); Carbon Dioxide 22 mmol/L (22-30); Chloride 106 mmol/L (98-107); Cholesterol 136 mg/dL (0-200); Estimated CRCL calculation 59 ml/min; Estimated Glomerular Filt Rate > 60; Glucose 106 mg/dL (65-110); HDL Direct 49 mg/dL; Magnesium 2.2 mg/dL (1.6-2.3); Potassium 3.6 mmol/L (3.4-5.0); Sodium 140 mmol/L (137-145); Triglycerides 83 mg/dL (<150)
[2021-12-04 07:08] LABS: LDL Cholesterol Direct 50 mg/dL
[2021-12-04] MEDS: ATORVASTATIN 20 MG TABLET PO (08:27)
[2021-12-04] MEDS: PANTOPRAZOLE SODIUM IV 40 MG VIAL IV PUSH (08:28)
[2021-12-04] MEDS: carvediloL 12.5 MG TABLET PO ×2 (08:29→18:54)
[2021-12-04] MEDS: MORPHINE SULFATE (*CRX) 4 MG/ML INJ IV PUSH ×2 (08:30→12:46)
[2021-12-04] MEDS: ACETAMINOPHEN 325 MG TABLET 650 MG PO (08:31)
--- NOTE | 2021-12-04 09:15 | PM.IMPN ---
Progress Note: A&P Assessment and Plan (1) Closed intertrochanteric fracture: Qualifiers: Encounter type: initial encounter Fracture alignment: displaced Laterality: right Qualified Code(s): S72.141A - Displaced intertrochanteric fracture of right femur, initial encounter for closed fracture Code(s): S72.143A - Displaced intertrochanteric fracture of unspecified femur, initial encounter for closed fracture Status: Acute Assessment and Plan: Hip and pelvis xray shows intertrochanteric fracture of the right hip Bed rest Ortho consulted Pain medications morphine 2mg IV Q4H, Tylenol 1000mg PO Q6H, [place] 5/325 PO Q4H 1 tab Surgery scheduled for 12/04/21 Post-op care per dagmar Westbrook for nausea Ortho for DVT prophylaxis (2) Hypercholesterolemia: Code(s): E78.00 - Pure hypercholesterolemia, unspecified Status: Acute Assessment and Plan: Continue home atorvastatin LFTs ok Lipid panel Triglycerides 83, Cholesterol 137, LDL 50, HDL 49 (3) Hypertension: Code(s): I10 - Essential (primary) hypertension Status: Acute Assessment and Plan: BP is 152/69 Resume home meds amlodipine and carvedilol Trend BP Adjust therapy as indicated (4) Right knee pain: Code(s): M25.561 - Pain in right knee Status: Acute Assessment and Plan: Xray show loose bone fragments, and osteoarthritis, follow up with CT or MRI CT showed no fracture, but does show osteoarthritis with loose body and small joint effusion Ortho already on the case Will probably need to follow up outpatient once hip is healed Pain control on board Time Spent With Patient Time with patient: Greater than 35 minutes Subjective Date/time seen: 12/04/21914 Interval history: 12/04/21914 patient seems to be doing ok at this time. She stated that anytime she moves her leg her pain goes up to a 9-10/10. Does have some constipation as well, however, post surgical procedure laxatives will be added. She denies any chest pain, shortness of breath, nausea, vomiting, diarrhea, constipation, weakness, fatigue. 12/03/21 1100 she appears to be in good spirits. She stated that she is fine as long as she is not moving around. She states that if she is moved around or her legs are adjusted all that she does have extreme pain. She denies any chest pain, shortness of breath, nausea, vomiting, diarrhea, constipation, weakness or fatigue. 12/02/21? 21:01 ?This is a 65-year-old female with past medical history significant for hypertension, osteoporosis, dyslipidemia,? obesity. patient presents to the emergency room after she had a fall while using her crutches she has been using crutches as of lately due to a but knee she lost her balance and fell over her right-sided unable to get up on her on EMS was called and patient was brought to the emergency room.? Patient denies any loss of consciousness, she has been her usual state of health prior to these no fevers, no rigors, no chills, no cough, no sputum production, no nausea, no vomiting, no abdominal pain. patient with limited range of motion of the right lower extremity unable to bear weight on it and extreme pain with movement.? Preliminary workup was significant for xray? of the pelvis: IMPRESSION: Comminuted intertrochanteric fracture of the right hip Review of Systems Review of Systems: All systems reviewed & are unremarkable except as noted in HPI and below Exam Const: General: cooperative, healthy appearing, comfortable, well developed, alert, awake and uncomfortable Nutritional Appearance: well nourished and overweight Orientation/consciousness: patient oriented x3 Limitations: no limitations HENMT: Head: normal to inspection, normocephalic and atraumatic Ears: hearing grossly normal bilaterally General nose exam: Normal external nose present Face and sinus: normal facial exam Mouth:
[2021-12-04] MEDS: KETOROLAC 15 MG/ML VIAL (*BKC) IV PUSH (14:03)
[2021-12-04] MEDS: TRANEXAMIC ACID 1,000MG/ISO100 1,000 MG/100 ML BAG 200 MG IVPB (14:04)
--- NOTE | 2021-12-04 14:16 | SUR.PREOP ---
SURGICAL HAIR REMOVAL AND SURGICAL SCRUB DEFERRED, PT STATES IT HURTS TO EVEN TOUCH MY LEG
--- NOTE | 2021-12-04 15:05 | WPDHPUPDATE1 ---
History and Physical Update Update Date/Time: 12/04/21 15:05 History and Physical has been reviewed, including an updated exam of the patient. There are NO changes in the patient's condition. Risks, benefits, and alternatives have been discussed and questions answered. Patient agrees to proceed with procedure.
--- NOTE | 2021-12-04 15:40 | WPDANESEPPF ---
Anes - Initial Pre Proc Eval Procedure: Operation Date: 12/04/21 15:00 Proposed Procedures p Right Intertrochanteric Nail - Kenny Cruz MD Date/Time: 12/04/21 15:40 Surgeon: Gianna Romero MD Pre Op Diagnosis: Right hip intertrochanteric fracture Patient Data Age: 65 Gender: F Height: 1.55 m Weight: 86.3 kg Last Vital Signs Temp 36.4 C 12/04/21 06:00 Pulse 84 12/04/21 08:29 Resp 20 12/04/21 06:00 BP 152/69 H 12/04/21 06:00 Pulse Ox 94 12/04/21 06:00 O2 Del Method Room Air 12/03/21 20:00 Allergies Allergy/AdvReac Type Severity Reaction Status Date / Time hornet venom Allergy Swelling Verified 12/03/21 00:14 Home Medications Medication Instructions Recorded Confirmed Type amlodipine 10 mg tablet 10 mg PO HS 05/17/19 12/03/21 History atorvastatin 20 mg tablet 20 mg PO DAILY 05/17/19 12/03/21 History carvedilol 12.5 mg tablet 12.5 mg PO BID 05/17/19 12/03/21 History alendronate 70 mg tablet 70 mg PO WEEKLY OSTEOPOROSIS 07/04/20 12/03/21 History aspirin 81 mg tablet 81 mg PO DAILY 07/04/20 12/03/21 History acetaminophen 650 mg 650 mg PO DAILY ARTHRITIS 12/03/21 12/03/21 History tablet,extended release Laboratory Tests 12/03/21 12/04/21 12/04/21 14:44 05:33 05:33 WBC 7.7 K/mm3 K/mm3 (4.5-10.0) RBC 3.50 M/mm3 L M/mm3 (4.2-5.4) Hgb 11.3 g/dL L g/dL (12.0-15.0) Hct 34.2 % L % (37.0-47.0) MCV 97.7 fl fl (80-100) MCH 32.3 pg pg (26-34) MCHC 33.0 g/dl g/dl (32-36) RDW 12.2 % % (11.5-14.5) Plt Count 174 k/mm3 k/mm3 (150-375) MPV 10.6 fl H fl (7.4-10.4) Immature Gran % (Auto) 0.4 % % (0-0.5) Neut % (Auto) 71.5 % % (45.5-73.1) Lymph % (Auto) 13.4 % L % (18.3-44.2) [place] % (Auto) 11.6 % H % (2.6-8.5) Eos % (Auto) 2.2 % % (0-4.4) Baso % (Auto) 0.9 % % (0.2-1.2) Lymph # (Auto) 1.03 K/mm3 K/mm3 (0.9-3.2) [place] # (Auto) 0.9 K/mm3 H K/mm3 (0.1-0.6) Eos # (Auto) 0.2 K/mm3 K/mm3 (0-0.3) Baso # (Auto) 0.1 K/mm3 K/mm3 (0.0-0.1) Abs Immat Gran (auto) 0.03 K/mm3 K/mm3 (0.00-0.031) Absolute Neuts (auto) 5.5 K/mm3 K/mm3 (1.3-6.7) Absolute Nucleated RBC 0.0 K/mm3 K/mm3 (0.0-0.012) Nucleated RBC % 0.0 % % (0.0-0.2) Sodium 140 mmol/L mmol/L (137-145) Potassium 3.6 mmol/L mmol/L (3.4-5.0) Chloride 106 mmol/L mmol/L (98-107) Carbon Dioxide 22 mmol/L mmol/L (22-30) Anion Gap 12 mmol/L mmol/L (8-16) BUN 12 mg/dL D mg/dL (7-17) Creatinine 0.80 mg/dL mg/dL (0.7-1.0) Estim Creat Clear Calc 59 ml/min ml/min Estimated GFR > 60 (59 - ) Glucose 106 mg/dL mg/dL (65-110) Calcium 8.3 mg/dL L mg/dL (8.4-10.2) Magnesium 2.2 mg/dL mg/dL (1.6-2.3) Total Bilirubin 0.6 mg/dL mg/dL (0.2-1.3) AST 24 U/L U/L (14-36) ALT 12 U/L U/L (6-35) Alkaline Phosphatase 62 U/L U/L (38-126) Total Protein 7.0 g/dL g/dL (6.3-8.2) Albumin 3.6 g/dL g/dL (3.5-5.1) Triglycerides 83 mg/dL mg/dL (<150) Cholesterol 136 mg/dL mg/dL (0-200) LDL Cholesterol Direct 50 mg/dL mg/dL HDL Direct 49 mg/dL mg/dL Antibody Screen Negative Patient hx anesthesia problems: none Family hx anesthesia problems: none Results Review: All pre-operative results and documents have been reviewed as part of the pre-operative evaluation. COUNT INCLUDES THE [facility] Past Medical History Medical History Arthritis Hypercholesterolemia Hypertension Surgical History Surgical History History of dental surgery
[2021-12-04] MEDS: ceFAZolin 2 GM/D5W 50 ML 2 GM/50 ML BAG IVPB ×2 (16:07→23:48)
--- NOTE | 2021-12-04 17:25 | W.PM.PROC2 ---
Procedure Note - Detailed Date of Procedure 12/04/21 Pre-op Diagnosis Right hip intertrochanteric fracture Post-op Diagnosis Same Procedure Performed INSERTION IM ROBSON RIGHT HIP WITH DYNAMIC HIP SCREW Surgeon Kenny Cruz MD Anesthesia General Description of Procedure THE PATIENT WAS TAKEN TO THE OPERATING ROOM AND PLACED ON A FRACTURE TABLE AFTER GIVEN GENERAL ANESTHESIA. THE RIGHT LOWER EXTREMITY WAS PLACED IN A TRACTION BOOT AND USING SOME TRACTION AND INTERNAL ROTATION THE INNER TROCHANTERIC FRACTURE WAS REDUCED TO ANATOMIC POSITION. NEXT THE LEFT LOWER EXTREMITY WAS PREPPED AND DRAPED IN THE STERILE FASHION. AN INCISION WAS MADE PROXIMAL TO THE TIP OF THE GREATER TROCHANTER AND DISSECTION CONTINUED TILL THE TIP OF THE GREATER TROCHANTER WAS PALPATED. A GUIDE PIN WAS PLACED DOWN THE FEMORAL CANAL AND PAST THE FRACTURE SITE. THIS WAS CHECKED ON FLUOROSCOPY AND FOUND TO BE IN GOOD POSITION. AN INITIAL REAMER WAS USED TO REAM THE FEMORAL CANAL. A 11 BY 200 MM ARTHREX ROBSON WAS INSERTED TILL THE CORRECT POSITION WAS IDENTIFIED ON XRAY. A GUIDE PIN WAS INSERTED THROUGH THE FEMORAL NECK AT 125 [address]GLE TILL IT REACHED THE TIP OF THE SUB CHONDRAL BONE SEEN ON XRAY. AFTER REAMING, LAG SCREW WAS INSERTED MEASURING 95 MM. XRAYS SHOWED IT TO BE IN GOOD POSITION. THE LAG SCREW WAS LOCKED PROXIMALLY WITH A LOCKING BOLT. NEXT A DEROTATIONAL SCREW WAS PLACED ACROSS THE ROBSON AND WAS IN GOOD POSITION ON XRAY. NEXT A DISTAL LOCKING SCREW WAS PLACED IN THE DYNAMIC POSITION. XRAYS SHOWED IT TO BE IN GOOD POSITION THE TRACTION WAS RELEASED. THE WOUNDS WERE WASHED. THE DEEP FASCIA WAS REPAIRED WITH #1 VICRYL SUTURE, THE SUB CUTANEOUS LAYER WITH 2-0 VICRYL, AND THE SKIN WITH ANNA MARIE. THE WOUNDS WERE WASHED AND THEN STERILE DRESSING WAS APPLIED. PATIENT WAS EXTUBATED AND SENT TO RECOVERY ROOM. Estimated Blood Loss 100 Urine Output 375 Complications No immediate complications Condition Stable Disposition PACU
[2021-12-04] MEDS: LACTATED RINGERS 1,000 ML 30 ML IV CONT ×2 (17:37→17:46)
[2021-12-04] MEDS: amLODIPine BESYLATE 5 MG TABLET 10 MG PO (20:42)
[2021-12-05] VITALS (11 sets, daily range): BP systolic 113–137; BP diastolic 63–76; PULSE 67–86; RESP 16–20; TEMP 36.1–36.9; O2SAT 96–99
[2021-12-05] MEDS: ceFAZolin 2 GM/D5W 50 ML 2 GM/50 ML BAG IVPB ×2 (05:47→14:20)
[2021-12-05 05:57] LABS: Basophils Percent Auto 0.3 % (0.2-1.2); Hematocrit 33.8 % (37.0-47.0); Hemoglobin 11.3 g/dL (12.0-15.0); Immature Granulocyte Absolute 0.05 K/mm3 (0.00-0.031); Immature Granulocyte Percent A 0.5 % (0-0.5); Lymphocytes Absolute Auto 0.38 K/mm3 (0.9-3.2); Lymphocytes Percent Auto 3.6 % (18.3-44.2); Mean Corpuscular HGB Conc 33.4 g/dl (32-36); Mean Corpuscular Volume 95.8 fl (80-100); Mean Platelet Volume 10.5 fl (7.4-10.4); Monocytes Absolute Auto 0.6 K/mm3 (0.1-0.6); Monocytes Percent Auto 5.5 % (2.6-8.5); Neutrophils Absolute Auto 9.6 K/mm3 (1.3-6.7); Neutrophils Percent Auto 90.1 % (45.5-73.1); Platelet Count Result 176 k/mm3 (150-375); Red Blood Count 3.53 M/mm3 (4.2-5.4); Red Cell Distribution Width 11.9 % (11.5-14.5); White Blood Count 10.6 K/mm3 (4.5-10.0)
[2021-12-05 06:26] LABS: Anion Gap 8 mmol/L (8-16); Blood Urea Nitrogen 15 mg/dL (7-17); Calcium 8.4 mg/dL (8.4-10.2); Carbon Dioxide 23 mmol/L (22-30); Chloride 106 mmol/L (98-107); Estimated CRCL calculation 53 ml/min; Estimated Glomerular Filt Rate > 60; Glucose 138 mg/dL (65-110); Potassium 4.3 mmol/L (3.4-5.0); Sodium 137 mmol/L (137-145)
[2021-12-05] MEDS: SENNA/DOCUSATE SODIUM TABLET 2 TAB PO ×2 (08:54→17:12)
[2021-12-05] MEDS: ASPIRIN 325 MG ENTERIC TABLET 650 MG PO (08:54)
[2021-12-05] MEDS: polyethylene glycoL 3350 17 GM POWD.PACK PO (08:56)
[2021-12-05] MEDS: ATORVASTATIN 20 MG TABLET PO (08:56)
[2021-12-05] MEDS: carvediloL 12.5 MG TABLET PO ×2 (08:56→17:13)
[2021-12-05] MEDS: HYDROcodone/acetaminophen (*CRX) 7.5-325 MG TABLET 1 TAB PO ×2 (09:07→22:39)
--- NOTE | 2021-12-05 10:06 | PM.PNORT ---
Progress Note: A&P Assessment and Plan (1) Closed intertrochanteric fracture: Qualifiers: Encounter type: initial encounter Fracture alignment: displaced Laterality: right Qualified Code(s): S72.141A - Displaced intertrochanteric fracture of right femur, initial encounter for closed fracture Code(s): S72.143A - Displaced intertrochanteric fracture of unspecified femur, initial encounter for closed fracture Status: Acute Assessment and Plan: POD #1 Continue PT/OT. TTWB. Walker. HIGH FALL RISK. Continue pain control. Ice hip. Protect skin. DVT prophylaxis with Aspirin. SCDs. Incentive Spirometry Use reviewed. Monitor Dressing. Change prior to discharge. Bowel Regimen. Dispo: SNF vs. [facility] pending progress with PT/OT and medical clearance. Subjective Subjective Date/Time Seen: 12/05/21 10:06 Post Op day: 1 Interval history: POD #1: INSERTION IM? ROBSON RIGHT HIP WITH DYNAMIC HIP SCREW Doing well. Pain well controlled. No new concerns. Concerns about discharging home. Feels she would benefit from rehab. Review of Systems Review of Systems: All systems reviewed & are unremarkable except as noted in HPI and below Constitutional: Constitutional: Denies chills, Denies fever(s), Denies headache(s), Denies lethargy and Reports weakness ENT: Denies headache(s) Cardiovascular: Cardiovascular: Denies chest pain, Denies diaphoresis, Denies lightheadedness, Denies palpitations, Denies dyspnea and Denies dyspnea on exertion Respiratory: Respiratory: Denies cough, Denies dyspnea and Denies dyspnea on exertion Gastrointestinal: Gastrointestinal: Denies constipation, Denies diarrhea, Denies nausea and Denies vomiting Genitourinary: Genitourinary: Reports urinary frequency, Denies dysuria and Denies urinary hesitancy Musculoskeletal: Musculoskeletal: Reports joint swelling (Right Hip ) and Reports limited range of motion (Right Hip due to recent surgery ) Neurologic: Denies headache(s) and Reports weakness Endocrine: Endocrine: Denies palpitations Exam Const: General: comfortable and no acute distress Resp: Effort & Inspection: normal respiratory effort Cardio: Rate: regular rate Rhythm: regular rhythm GI: Inspection: non-distended Skin: General skin exam: normal color Other: Incision right hip c/d/i. Surrounding tissue without redness/warmth. Mild swelling consistent with recent surgery. No drainage. Neuro: Cognition (Neuro): normal cognition Speech: normal speech Extrem: Right lower extremity: normal to inspection, normal capillary refill, hip/thigh Details: tenderness Location: of the hip (Thigh soft ) Location: laterally and anteriorly, swelling Location: at the hip, abnormal ROM (limited consistent with recent surgery ) Details: pain with active ROM during and pain with passive ROM during and other (Incision c/d/i. ); no deformity and no unusual warmth, knee Details: normal to inspection; no tenderness and no swelling, lower leg (Negative Barbara's Sign ) Details: normal to inspection and no edema; no tenderness, ankle (+ankle dorsiflexion/plantarflexion) Details: normal to inspection and no edema; no tenderness, no swelling and no ecchymosis and foot Details: normal capillary refill, toes with normal ROM, vascular exam Details: dorsalis pedis pulse present and motor-sensory exam Details: light-touch normal; no tenderness Objective Data Vital Signs Vital Signs: Vital Signs - 24 hr 12/04/21 17:37 12/04/21 17:55 12/04/21 18:05 Temperature 36.5 C Pulse Rate 71 76 Respiratory Rate 16 18 Blood Pressure 150/70 H 124/69 Pulse Oximetry 100 100 Oxygen Delivery Simple Face Mask Simple Face Mask Room Air Oxygen Flow Rate 10 10 12/04/21 18:10 12/04/21 18:25 12/04/21 18:38 Temperature Pulse Rate 72 71 70 Respiratory Rate 17 20 18 Blood Pressure 141/65 H 137/73 148/68 H Pulse Oximetry 97 96 98 Oxygen Delivery Nasal Cannula Nasal Cannula Nasal Cannula Oxygen Flow Rate
--- NOTE | 2021-12-05 10:30 | PM.IMPN ---
Progress Note: A&P Assessment and Plan (1) Closed intertrochanteric fracture: Qualifiers: Encounter type: initial encounter Fracture alignment: displaced Laterality: right Qualified Code(s): S72.141A - Displaced intertrochanteric fracture of right femur, initial encounter for closed fracture Code(s): S72.143A - Displaced intertrochanteric fracture of unspecified femur, initial encounter for closed fracture Status: Acute Assessment and Plan: POD 1 Hip and pelvis xray shows intertrochanteric fracture of the right hip Ortho consulted Pain medications morphine 2mg IV Q4H, Tylenol 1000mg PO Q6H, [place] 5/325 PO Q4H 1 tab Surgery scheduled for 12/04/21 Post-op care per dagmar Westbrook for nausea DVT prophylaxis aspirin 650 Weight bearing status toe touch weight bearing (2) Hypercholesterolemia: Code(s): E78.00 - Pure hypercholesterolemia, unspecified Status: Acute Assessment and Plan: Continue home atorvastatin LFTs ok Lipid panel Triglycerides 83, Cholesterol 137, LDL 50, HDL 49 (3) Hypertension: Code(s): I10 - Essential (primary) hypertension Status: Acute Assessment and Plan: BP is 135/66 Resume home meds amlodipine and carvedilol Trend BP Adjust therapy as indicated (4) Right knee pain: Code(s): M25.561 - Pain in right knee Status: Acute Assessment and Plan: Xray show loose bone fragments, and osteoarthritis, follow up with CT or MRI CT showed no fracture, but does show osteoarthritis with loose body and small joint effusion Ortho already on the case Will probably need to follow up outpatient once hip is healed Pain control on board Time Spent With Patient Time with patient: Greater than 35 minutes Subjective Date/time seen: 12/05/21 1030 Interval history: 12/05/21 1030 Patient stated that she is doing okay today. She denies any chest pain, shortness of breath, nausea, vomiting, diarrhea, constipation, weakness or fatigue. She did state that she was having a little pain especially when she moves around or tries to pull herself up in bed. She is anxiously awaiting physical therapy. She stated that she feels like she is doing great. She is having some constipation. Medications on board. 12/04/21 0915 patient seems to be doing ok at this time. She stated that anytime she moves her leg her pain goes up to a 9-10/10. Does have some constipation as well, however, post surgical procedure laxatives will be added. She denies any chest pain, shortness of breath, nausea, vomiting, diarrhea, constipation, weakness, fatigue. 12/03/21 1100 she appears to be in good spirits. She stated that she is fine as long as she is not moving around. She states that if she is moved around or her legs are adjusted all that she does have extreme pain. She denies any chest pain, shortness of breath, nausea, vomiting, diarrhea, constipation, weakness or fatigue. 12/02/21? 21:01 ?This is a 65-year-old female with past medical history significant for hypertension, osteoporosis, dyslipidemia,? obesity. patient presents to the emergency room after she had a fall while using her crutches she has been using crutches as of lately due to a but knee she lost her balance and fell over her right-sided unable to get up on her on EMS was called and patient was brought to the emergency room.? Patient denies any loss of consciousness, she has been her usual state of health prior to these no fevers, no rigors, no chills, no cough, no sputum production, no nausea, no vomiting, no abdominal pain. patient with limited range of motion of the right lower extremity unable to bear weight on it and extreme pain with movement.? Preliminary workup was significant for xray? of the pelvis: IMPRESSION: Comminuted intertrochanteric fracture of the right hip Review of Systems Review of Systems: All systems reviewed & ar
[2021-12-05] MEDS: amLODIPine BESYLATE 5 MG TABLET 10 MG PO (20:32)
[2021-12-06 06:13] LABS: Basophils Absolute Auto 0.1 K/mm3 (0.0-0.1); Basophils Percent Auto 0.5 % (0.2-1.2); Eosinophils Absolute Auto 0.1 K/mm3 (0-0.3); Eosinophils Percent Auto 0.9 % (0-4.4); Hemoglobin 10.6 g/dL (12.0-15.0); Immature Granulocyte Absolute 0.04 K/mm3 (0.00-0.031); Immature Granulocyte Percent A 0.4 % (0-0.5); Lymphocytes Percent Auto 11.5 % (18.3-44.2); Mean Corpuscular HGB Conc 33.1 g/dl (32-36); Mean Corpuscular Hemoglobin 32.5 pg (26-34); Mean Corpuscular Volume 98.2 fl (80-100); Mean Platelet Volume 10.9 fl (7.4-10.4); Monocytes Absolute Auto 1.1 K/mm3 (0.1-0.6); Monocytes Percent Auto 10.6 % (2.6-8.5); Neutrophils Absolute Auto 7.9 K/mm3 (1.3-6.7); Neutrophils Percent Auto 76.1 % (45.5-73.1); Platelet Count Result 176 k/mm3 (150-375); Red Blood Count 3.26 M/mm3 (4.2-5.4); Red Cell Distribution Width 12.2 % (11.5-14.5); White Blood Count 10.4 K/mm3 (4.5-10.0)
[2021-12-06 06:28] LABS: Alanine Aminotransferase 16 U/L (6-35); Albumin Level 3.3 g/dL (3.5-5.1); Alkaline Phosphatase 74 U/L (38-126); Anion Gap 8 mmol/L (8-16); Aspartate Amino Transferase 39 U/L (14-36); Bilirubin,Total 0.5 mg/dL (0.2-1.3); Blood Urea Nitrogen 30 mg/dL (7-17); Calcium 8.7 mg/dL (8.4-10.2); Carbon Dioxide 27 mmol/L (22-30); Chloride 105 mmol/L (98-107); Estimated CRCL calculation 48 ml/min; Estimated Glomerular Filt Rate 55; Glucose 113 mg/dL (65-110); Magnesium 2.3 mg/dL (1.6-2.3); Potassium 4.1 mmol/L (3.4-5.0); Sodium 140 mmol/L (137-145)
[2021-12-06 06:59] VITALS: BP 132/57; PULSE 72; RESP 17; TEMP 36; O2SAT 96
[2021-12-06 08:23] VITALS: PULSE 72
[2021-12-06] MEDS: ATORVASTATIN 20 MG TABLET PO (08:23)
[2021-12-06] MEDS: carvediloL 12.5 MG TABLET PO ×2 (08:23→17:19)
[2021-12-06] MEDS: SENNA/DOCUSATE SODIUM TABLET 2 TAB PO ×2 (08:23→17:18)
[2021-12-06] MEDS: ASPIRIN 325 MG ENTERIC TABLET 650 MG PO (08:23)
[2021-12-06] MEDS: polyethylene glycoL 3350 17 GM POWD.PACK PO (08:24)
[2021-12-06] MEDS: HYDROcodone/acetaminophen (*CRX) 7.5-325 MG TABLET 1 TAB PO (08:27)
[2021-12-06] MEDS: BISACODYL 10 MG SUPPOSITORY RECTAL (14:09)
[2021-12-06] MEDS: HYDROcodone/acetaminophen (*CRX) 10-325 MG TABLET 1 TAB PO ×3 (14:10→21:53)
[2021-12-06 14:59] VITALS: BP 129/58; PULSE 79; RESP 18; TEMP 36.6; O2SAT 99
--- NOTE | 2021-12-06 16:33 | PM.PNORT ---
Progress Note: A&P Assessment and Plan (1) Closed intertrochanteric fracture: Qualifiers: Encounter type: initial encounter Fracture alignment: displaced Laterality: right Qualified Code(s): S72.141A - Displaced intertrochanteric fracture of right femur, initial encounter for closed fracture Code(s): S72.143A - Displaced intertrochanteric fracture of unspecified femur, initial encounter for closed fracture Status: Acute Assessment and Plan: POD 2 DOING WELL. WILL PLAN FOR DC ONCE OK WITH MEDICINE. SHE WILL F/U IN 6 WEEKS. Subjective Subjective Date/Time Seen: 12/06/21 16:33 RIGHT HIP TROCH NAIL DOING WELL POD 2. NO CALF PAIN Exam Extrem: Other: VSS AFEBRILE DRESSING DRY NV INTACT NEG HOMANS SIGN CALF SOFT NON TENDER Objective Data Vital Signs Vital Signs: Vital Signs - 24 hr 12/05/21 17:13 12/05/21 20:00 12/05/21 20:24 Temperature 36.2 C L Pulse Rate 80 80 77 Respiratory Rate 16 18 Blood Pressure 126/63 Pulse Oximetry 97 99 Oxygen Delivery Room Air 12/06/21 06:59 12/06/21 08:23 12/06/21 08:25 Temperature 36.0 C L Pulse Rate 72 72 Respiratory Rate 17 Blood Pressure 132/57 L Pulse Oximetry 96 Oxygen Delivery Room Air 12/06/21 14:59 Temperature 36.6 C Pulse Rate 79 Respiratory Rate 18 Blood Pressure 129/58 L Pulse Oximetry 99 Oxygen Delivery Intake/Output Intake/Output: Intake & Output 12/03/21 12/04/21 12/05/21 12/06/21 23:59 23:59 23:59 23:59 Intake Total 502 891 6608 992 Output Total 975 955 275 500 Balance -375 -505 1355 492 Meds/Results Medications: Active Medications Generic Name Dose Route Start Last Admin Trade Name Freq PRN Reason Stop Dose Admin Acetaminophen 650 mg 12/04/21 18:39 Acetaminophen 325 Mg Tablet PO Q6H PRN Mild Pain (1-3) or Fever Hydrocodone Bitart/Acetaminophen 1 tab 12/06/21 11:07 12/06/21 14:10 Hydrocodone/Acetaminophen (*Crx) 10-325 Mg Tablet PO 1 tab Q4H PRN Administration Pain Rated 6 or Greater Alendronate Sodium 70 mg 12/11/21 09:00 Alendronate Sodium 70 Mg Tablet PO WEEKLY [facility] Amlodipine Besylate 10 mg 12/03/21 21:00 12/05/21 20:32 Amlodipine Besylate 5 Mg Tablet PO 10 mg HS [facility] Administration Aspirin 650 mg 12/05/21 09:00 12/06/21 08:23 Aspirin 325 Mg Enteric Tablet PO 650 mg DAILY [facility] Administration Atorvastatin Calcium 20 mg 12/03/21 10:00 12/06/21 08:23 Atorvastatin 20 Mg Tablet PO 20 mg DAILY [facility] Administration Carvedilol 12.5 mg 12/03/21 17:00 12/06/21 08:23 Carvedilol 12.5 Mg Tablet PO 12.5 mg BID [facility] Administration Diazepam 5 mg 12/04/21 18:39 Diazepam (*Crx) 5 Mg Tablet PO Q8H PRN Muscle Spasm Hydroxyzine Pamoate 50 mg 12/04/21 18:39 Hydroxyzine Pamoate 25 Mg Capsule PO Q4H PRN Itching Morphine Sulfate 3 mg 12/04/21 18:39 Morphine Sulfate (*Crx) 4 Mg/Ml Inj IV PUSH Q3H PRN Pain Rated 7-10 Naloxone HCl 0.1 mg 12/04/21 18:39 Naloxone Hcl 0.4 Mg/Ml Vial IV PUSH Q2M PRN Opiate Reversal Ondansetron HCl 4 mg 12/04/21 18:39 Ondansetron Inj 4 Mg/2 Ml Vial IV PUSH Q4H PRN Nausea And Vomiting Polyethylene Glycol 17 gm 12/05/21 09:00 12/06/21 08:24 Polyethylene Glycol 3350 17 Gm Powd.Pack PO 17 gm QAM [facility] Administration Senna/Docusate Sodium 2 tab 12/05/21 09:00 12/06/21 08:23 Senna/Docusate Sodium Tablet PO 2 tab BID [facility] Administration Radiology Results: ITS Impressions Hip/Pelvis X-Ray 12/02/21 19:26 IMPRESSION: Comminuted intertrochanteric fracture of the right hip Knee X-Ray 12/02/21 19:28 IMPRESSION: Possible bony loose fragment in the posterior joint space. Consider MR of the knee for further evaluation. CT may be of benefit. Tricompartment osteophytosis, most severe at the medial compartment Chest X-Ray 12/02/21 19:33 IMPRESSION: Cardiomegaly, aortic atheros
--- NOTE | 2021-12-06 16:50 | PM.IMPN ---
Progress Note: A&P Assessment and Plan (1) Closed intertrochanteric fracture: Qualifiers: Encounter type: initial encounter Fracture alignment: displaced Laterality: right Qualified Code(s): S72.141A - Displaced intertrochanteric fracture of right femur, initial encounter for closed fracture Code(s): S72.143A - Displaced intertrochanteric fracture of unspecified femur, initial encounter for closed fracture Status: Acute Assessment and Plan: right comminuted intertrochanteric hip fracture noted on CT. POD 2 s/p intramedullary rodding right hip with hip screw 12/04/2021 postop management per Ortho Pain medications- increase [place] 10/325 mg p.o. q.4 hours and p.r.n. morphine 2mg IV Q4H Zofran for nausea DVT prophylaxis aspirin 650 patient is toe-touch weight-bearing right lower extremity the Continue PT/OT Patient awaiting discharge to SNF rehab (2) Right knee pain: Qualifiers: Chronicity: chronic Qualified Code(s): M25.561 - Pain in right knee; G89.29 - Other chronic pain Code(s): M25.561 - Pain in right knee Status: Acute Assessment and Plan: Xray show loose bone fragments, and osteoarthritis, CT showed no fracture, but does show osteoarthritis with loose body and small joint effusion Ortho following Will probably need to follow up outpatient once hip is healed Pain control as above (3) Hypercholesterolemia: Code(s): E78.00 - Pure hypercholesterolemia, unspecified Status: Chronic Assessment and Plan: chronic, stable,Continue home atorvastatin LFTs ok Lipid panel Triglycerides 83, Cholesterol 137, LDL 50, HDL 49 (4) Hypertension: Qualifiers: Hypertension type: primary hypertension Qualified Code(s): I10 - Essential (primary) hypertension Code(s): I10 - Essential (primary) hypertension Status: Acute Assessment and Plan: chronic, stable, continue home meds amlodipine and carvedilol monitor vitals Adjust therapy as indicated (5) Constipation due to opioid therapy: Code(s): K59.03 - Drug induced constipation; T40.2X5A - Adverse effect of other opioids, initial encounter Status: Acute Assessment and Plan: patient reports no BM since admission on 12/02, abdominal pain and nausea reported on 12/05, physical exam with hypoactive bowel sounds and some flatus reported Continue MiraLax p.o. daily and senna Plus 2 tabs b.i.d. Add bisacodyl suppository x1 Awaiting BM consider KUB if symptoms worsen Plan code status: Full code Disposition: SNF rehab, will plan to discharge in a.m. if pain is improved and she has had a bowel movement Time Spent With Patient Time with patient: 15 - 25 minutes Subjective Date/time seen: 12/06/21 16:50 patient sitting up in chair. she reports significant pain this morning and somewhat improved with oral [place] although she is wondering if a stronger dose with better control her pain. No BM since prior to admission. She endorses he some flatus. No abdominal pain, nausea, emesis today, however she does endorse abdominal pain with nausea yesterday 12/05/2021. No emesis she is tolerating diet. Nursing reports patient patient is loss here reluctant to increase mobility due to pain. Review of Systems Review of Systems: All systems reviewed & are unremarkable except as noted in HPI and below Exam Narrative: General:??Well-developed female? Sitting up in the chair.? No acute distress.? Nontoxic appearing HEENT:??Normocephalic. Pupils equal and round. Sclera anicteric.? Oral mucosa moist.? Grossly normal hearing. Neck:??Supple. no JVD Respiratory:?Lungs are clear to auscultation bilaterally. RR regular and unlabored. Cardiovascular:??Regular rate and rhythm with S1-S2. No murmurs, gallops, or rubs. Gastrointestinal:??Abdomen is soft, round,nontender, and nondistended with hypoactive bowel so
[2021-12-06 17:19] VITALS: PULSE 80
[2021-12-06 19:51] VITALS: PULSE 80; RESP 18; O2SAT 99
[2021-12-06 20:15] VITALS: BP 108/52; PULSE 73; RESP 16; TEMP 36.5; O2SAT 97
[2021-12-06] MEDS: amLODIPine BESYLATE 5 MG TABLET 10 MG PO (21:53)
[2021-12-07 05:30] VITALS: BP 116/52; PULSE 78; RESP 16; TEMP 36.2; O2SAT 96
[2021-12-07 06:07] LABS: Hematocrit 32.1 % (37.0-47.0); Hemoglobin 10.5 g/dL (12.0-15.0); Mean Corpuscular HGB Conc 32.7 g/dl (32-36); Mean Corpuscular Hemoglobin 31.8 pg (26-34); Mean Corpuscular Volume 97.3 fl (80-100); Mean Platelet Volume 10.8 fl (7.4-10.4); Platelet Count Result 178 k/mm3 (150-375); Red Cell Distribution Width 12.2 % (11.5-14.5); White Blood Count 8.3 K/mm3 (4.5-10.0)
[2021-12-07 06:30] LABS: Anion Gap 12 mmol/L (8-16); Blood Urea Nitrogen 33 mg/dL (7-17); Calcium 8.7 mg/dL (8.4-10.2); Carbon Dioxide 26 mmol/L (22-30); Chloride 101 mmol/L (98-107); Estimated CRCL calculation 44 ml/min; Estimated Glomerular Filt Rate 50; Glucose 107 mg/dL (65-110); Potassium 3.8 mmol/L (3.4-5.0); Sodium 139 mmol/L (137-145)
[2021-12-07 08:33] VITALS: PULSE 78
[2021-12-07] MEDS: SENNA/DOCUSATE SODIUM TABLET 2 TAB PO (08:33)
[2021-12-07] MEDS: ASPIRIN 325 MG ENTERIC TABLET 650 MG PO (08:33)
[2021-12-07] MEDS: carvediloL 12.5 MG TABLET PO (08:33)
[2021-12-07] MEDS: ATORVASTATIN 20 MG TABLET PO (08:33)
[2021-12-07] MEDS: HYDROcodone/acetaminophen (*CRX) 10-325 MG TABLET 1 TAB PO ×2 (08:34→13:25)
--- NOTE | 2021-12-07 09:44 | PM.DS ---
DS: Admitting Diagnosis Discharge Date 12/07/2021 0944 Admitting Diagnosis Right intertrochanteric hip fracture mechanical fall right knee pain, chronic DS: Discharge Diagnosis Discharge Diagnosis (1) Closed intertrochanteric fracture: Qualifiers: Encounter type: initial encounter Fracture alignment: displaced Laterality: right Qualified Code(s): S72.141A - Displaced intertrochanteric fracture of right femur, initial encounter for closed fracture Code(s): S72.143A - Displaced intertrochanteric fracture of unspecified femur, initial encounter for closed fracture Status: Acute Assessment and Plan: right comminuted intertrochanteric hip fracture noted on CT. s/p ?intramedullary rodding right hip with hip screw 12/04/2021 postop management per Ortho Pain medications Cameron 10/325 mg p.o. q.4 hours DVT prophylaxis aspirin 650 mg daily x 28 days toe-touch weight-bearing right lower extremity per Ortho Continue PT/OT (2) Right knee pain: Qualifiers: Chronicity: chronic Qualified Code(s): M25.561 - Pain in right knee; G89.29 - Other chronic pain Code(s): M25.561 - Pain in right knee Status: Acute Assessment and Plan: Xray show loose bone fragments and osteoarthritis, CT showed no fracture, but does show osteoarthritis with loose body and small joint effusion Ortho following Pain control as above, PT/OT follow up outpatient with Ortho (3) Hypercholesterolemia: Code(s): E78.00 - Pure hypercholesterolemia, unspecified Status: Chronic Assessment and Plan: chronic, stable,Continue home atorvastatin LFTs within normal limits. Lipid panel Triglycerides 83, Cholesterol 137, LDL 50, HDL 49 (4) Hypertension: Qualifiers: Hypertension type: primary hypertension Qualified Code(s): I10 - Essential (primary) hypertension Code(s): I10 - Essential (primary) hypertension Status: Acute Assessment and Plan: chronic, stable, continue home meds amlodipine and carvedilol (5) Constipation due to opioid therapy: Code(s): K59.03 - Drug induced constipation; T40.2X5A - Adverse effect of other opioids, initial encounter Status: Acute Assessment and Plan: 12/06 patient reports no BM since admission on 12/02, abdominal pain and nausea reported on 12/05, physical exam with hypoactive bowel sounds and some flatus reported Continue MiraLax p.o. daily and senna Plus 2 tabs b.i.d. bisacodyl suppository x1 given 12/06/21 without effect. 12/07 Fleet enema x1 ordered. 1 BM at 1300. DS: Summary Hospital Course Reason for hospitalization: Right hip pain Hospital Course: Jennifer Calvillo is a?65-year-old female with hypertension, osteoporosis, dyslipidemia,?obesity and arthritis, who patient presented to the emergency room on 12/02/21 following a fall while using crutches. She reported using crutches due to worsening right knee pain without reported trauma. She endorsed losing her balance and falling on her right-side. She was unable to get up on her own and EMS was called. She was unable to bear weight on ther right leg and reported severe, constant pain. She denied loss of consciousness. She was in her usual state of health, aside from right knee pain, prior to admission. She denied fevers, rigors, chills, cough, sputum production, nausea, vomiting, or abdominal pain. In the ED, she was afebrile with stable vitals, except for elevated BP 174/68. Lab work showed mildly elevated BUN 20, creatinine 1.2 and GFR 41. CMP and CBC were otherwise unremarkable. EKG was without ischemic changes or arrhythmia. Pelvis x-ray?showed comminuted intertrochanteric fracture of the right hip. She was admitted to the medical floor for further surgical evaluation. Orthopedics was consulted. The patient underwent?intramedullary rodding right hip with hip screw on 12/04/2021. She had unremarkable
[2021-12-07 12:14] LABS: EDCOVIDSCREEN Negative (Negative)
== END 2021-12-07 14:21 | disposition swing bed (61) | DRG 482 ==
LOC: ANHED 22:29 → ANH3MEDSUR 23:12
PROVIDERS: Nurse Practitioner; Orthopaedic Surgery; Physician Assistant; Admitting Provider Internal Medicine; Emergency Provider Emergency Medicine; PCP Internal Medicine; Visit Provider Nurse Practitioner Family
PROC: 0QS634Z Reposition Right Upper Femur with Internal Fixation Device, Percutaneous Approach (ICD-10-PCS; CPT 27245; principal; 2021-12-04 15:00)
DX: S72.141A Displaced intertrochanteric fracture of right femur, initial encounter for closed fracture (principal); W18.39XA Other fall on same level, initial encounter; E78.00 Pure hypercholesterolemia, unspecified; I10 Essential (primary) hypertension; M81.0 Age-related osteoporosis without current pathological fracture; E66.9 Obesity, unspecified; M25.561 Pain in right knee; M23.41 Loose body in knee, right knee; M17.11 Unilateral primary osteoarthritis, right knee; Z20.822 Contact with and (suspected) exposure to COVID-19; K59.03 Drug induced constipation; T40.2X5A Adverse effect of other opioids, initial encounter; Z79.899 Other long term (current) drug therapy
CPT/HCPCS: 36415; 71045; 73502; 73560; 73700; 80048; 80053; 80061; 83735; 85025; 85027; 86850; 86900; 86901; 87426; 93005; 96374; 96375; 96376; 97110; 97116; 97162; 97165; 97530; 97535; 99199; 99285; A9270; C1713; C9113; C9803; G0378; J0690; J1100; J1885; J2250; J2270; J2405; J2704; J3010; J7120

== ENCOUNTER 2021-12-07 14:54 | Inpatient (IN) | payer MEDICARE, SELFPAY ==
[2021-12-07 15:05] VITALS: BP 107/64; PULSE 73; RESP 18; TEMP 36.2; O2SAT 96; BMI 36.1
--- NOTE | 2021-12-07 15:05 | ADMGEN ---
This patient, Jennifer Calvillo, was admitted to 2nd Floor Room 203-1 as a skilled swing bed due to right hip ORIF. Patient/family oriented to hospital policies and general routines including ID bracelet, bed and alarms, visiting hours, pain management, procedures, bathroom and other care routines, personal items, smoking policy, room service/diet, and visiting hours. Information on how to activate the Rapid Response Team has been discussed. Patient/Family are encouraged to report perceived risks to care and to ask questions if they do not understand what they are told or what they should do.
[2021-12-07 15:56] VITALS: BMI 36.1
[2021-12-07] MEDS: HYDROcodone/acetaminophen (*CRX) 10-325 MG TABLET 1 TAB PO (17:10)
[2021-12-07 17:11] VITALS: PULSE 73
[2021-12-07] MEDS: carvediloL 12.5 MG TABLET PO (17:11)
[2021-12-07] MEDS: SENNA/DOCUSATE SODIUM TABLET 2 TAB PO (17:11)
--- NOTE | 2021-12-07 20:23 | PM.IMHP ---
H&P: HPI History of Present Illness Date/Time: 12/07/21 20:23 Chief Complaint: Swing rehab right hip replacement Narrative: This is a?65-year-old female with hypertension, osteoporosis, dyslipidemia,?obesity and arthritis, who had a fall while on crutches on 12/02/21. Mrs Calvillo underwent?intramedullary rodding right hip with hip screw on 12/04/2021. PT/OT has seen patient and recommended that she swing. The patient is toe-touch weight-bearing to E. She had significant hip pain postop and required increased dosing of narcotics. Right knee CT has showing arthritis no acute fracture, severe tricompartment osteoarthritis with loose body along the posterior joint space and small joint effusion. Patient has been sitting on the side of the bed and states pain in 2/10. Patient states she is able to eat and drink and denies a lot of pain and she only has pain 2 when she is just sitting and with movement it can be a 8 /10 but the pain medication helps significantly. Patient vitals are stable 97 4, 72 heart rate respirations 16, blood pressure 119/59 96% on room air. We have accepted patient into our swing serves. ? Review of Systems Review of Systems: right hip pain All systems reviewed & are unremarkable except as noted in HPI and below PMFSH Past Medical History Medical History Arthritis Hypercholesterolemia Hypertension Surgical History Surgical History History of dental surgery Social History Social History Smoking status: Never smoker Alcohol intake: never Alcohol use details: does not use alcohol Substance use: never Substance use type: does not use Gender identity (if verbalized by the patient): Female Spiritual care concerns: No Meds Home Medications and Allergies Home Medications Medication Instructions Recorded Confirmed Type amlodipine 10 mg tablet 10 mg PO HS 05/17/19 12/07/21 History atorvastatin 20 mg tablet 20 mg PO DAILY 05/17/19 12/07/21 History carvedilol 12.5 mg tablet 12.5 mg PO BID 05/17/19 12/07/21 History alendronate 70 mg tablet 70 mg PO WEEKLY OSTEOPOROSIS 07/04/20 12/07/21 History aspirin 81 mg tablet 81 mg PO DAILY 07/04/20 12/07/21 History acetaminophen 650 mg 650 mg PO DAILY ARTHRITIS #7 tabs 12/07/21 12/07/21 Rx tablet,extended release aspirin 325 mg tablet,delayed 650 mg PO DAILY 26 days #52 tabs 12/07/21 12/07/21 Rx release bisacodyl 10 mg rectal suppository 10 mg RECTAL DAILY PRN 12/07/21 12/07/21 Rx constipation #12 ea hydrocodone 10 mg-acetaminophen 1 tablet PO Q6H PRN pain #10 tabs 12/07/21 12/07/21 Rx 325 mg tablet polyethylene glycol 3350 17 gram 17 g PO QAM #14 ea 12/07/21 12/07/21 Rx oral powder packet (Miralax) sennosides 8.6 mg-docusate sodium 2 tab-cap PO BID #14 tabs 12/07/21 12/07/21 Rx 50 mg tablet (Senokot-S) Allergies Allergy/AdvReac Type Severity Reaction Status Date / Time hornet venom Allergy Swelling Verified 12/03/21 00:14 Vital Signs Vital Signs - 24 hr 12/07/21 15:05 12/07/21 17:11 Temperature 97.2 F L Pulse Rate 73 73 Respiratory Rate 18 Blood Pressure 107/64 Pulse Oximetry 96 Oxygen Delivery Room Air Exam Narrative: GENERAL:Well-appearing, well-nourished, and in no acute distress. HEAD:Normocephalic, atraumatic. EYES: PERRLA and EOMI. ENT: Nares clear, no rhinorrhea or epistaxis. Mucous membranes moist. NECK: Supple. CHEST: Clear to auscultation. No respiratory distress. HEART: Regular rate and rhythm. Normal peripheral pulses. ABDOMEN: Soft, nontender, nondistended, normal active bowel sounds. EXTREMITIES: Decreased range of motion bilaterally due to pain mild right leg edema slight shortened and externally rotated tender at incision site. SKIN: Warm, dry, no rash. NEURO: No focal deficits. Alert and oriented x3. Asse
[2021-12-07] MEDS: amLODIPine BESYLATE 5 MG TABLET 10 MG PO (20:49)
[2021-12-07] MEDS: PANTOPRAZOLE 40 MG TABLET PO (20:50)
[2021-12-07 23:09] VITALS: BP 119/59; PULSE 72; RESP 16; TEMP 36.3; O2SAT 96
[2021-12-08] MEDS: HYDROcodone/acetaminophen (*CRX) 10-325 MG TABLET 1 TAB PO ×3 (06:32→21:29)
[2021-12-08 07:35] VITALS: BP 109/59; PULSE 84; RESP 16; TEMP 37; O2SAT 96
[2021-12-08] MEDS: SENNA/DOCUSATE SODIUM TABLET 2 TAB PO ×2 (09:11→16:23)
[2021-12-08] MEDS: ASPIRIN 325 MG ENTERIC TABLET 650 MG PO (09:11)
[2021-12-08] MEDS: PANTOPRAZOLE 40 MG TABLET PO ×2 (09:11→21:14)
[2021-12-08] MEDS: ATORVASTATIN 10 MG TABLET 20 MG PO (09:11)
[2021-12-08] MEDS: ACETAMINOPHEN 325 MG TABLET 650 MG PO (09:11)
[2021-12-08 09:12] VITALS: PULSE 76
[2021-12-08] MEDS: carvediloL 12.5 MG TABLET PO ×2 (09:12→16:23)
[2021-12-08] MEDS: polyethylene glycoL 3350 17 GM POWD.PACK PO (09:12)
[2021-12-08 16:23] VITALS: PULSE 78
[2021-12-08 16:35] VITALS: BP 124/86; PULSE 78; RESP 16; TEMP 36.7; O2SAT 97
[2021-12-08] MEDS: amLODIPine BESYLATE 5 MG TABLET 10 MG PO (21:14)
--- NOTE | 2021-12-08 22:10 | PC.NURSE ---
Pt assisted to BR c SBA and use of walker, pt uses toe-touch and tolerates well. Pt repositioned in bed, lights dimmed and call olsen in pt reach.
--- NOTE | 2021-12-09 01:10 | PC.NURSE ---
Pt sleeping, RR even and nonlabored, no distress noted, call olsen in pt reach
[2021-12-09 03:00] VITALS: BP 118/71; PULSE 80; RESP 18; TEMP 36.6; O2SAT 97
--- NOTE | 2021-12-09 04:00 | PC.NURSE ---
Pt sleeping, rr even and nonlabored, call olsen in pt reach.
[2021-12-09] MEDS: HYDROcodone/acetaminophen (*CRX) 10-325 MG TABLET 1 TAB PO ×3 (05:56→18:31)
[2021-12-09 08:00] VITALS: BP 121/66; PULSE 79; RESP 16; TEMP 36.6; O2SAT 95
[2021-12-09] MEDS: polyethylene glycoL 3350 17 GM POWD.PACK PO (08:53)
[2021-12-09] MEDS: ASPIRIN 325 MG ENTERIC TABLET 650 MG PO (08:55)
[2021-12-09 08:56] VITALS: PULSE 79
[2021-12-09] MEDS: carvediloL 12.5 MG TABLET PO ×2 (08:56→17:12)
[2021-12-09] MEDS: ACETAMINOPHEN 325 MG TABLET 650 MG PO (08:57)
[2021-12-09] MEDS: SENNA/DOCUSATE SODIUM TABLET 2 TAB PO ×2 (08:57→17:12)
[2021-12-09] MEDS: ATORVASTATIN 10 MG TABLET 20 MG PO (08:58)
[2021-12-09] MEDS: PANTOPRAZOLE 40 MG TABLET PO ×2 (08:58→20:47)
[2021-12-09 16:00] VITALS: BP 113/70; PULSE 71; RESP 16; TEMP 36.3; O2SAT 100
[2021-12-09 17:12] VITALS: PULSE 71
[2021-12-09] MEDS: amLODIPine BESYLATE 5 MG TABLET 10 MG PO (20:47)
[2021-12-10] VITALS: BP 108/53; PULSE 68; RESP 18; TEMP 35.9; O2SAT 97
[2021-12-10 08:00] VITALS: BP 126/61; PULSE 79; RESP 16; TEMP 36.6; O2SAT 100
[2021-12-10] MEDS: polyethylene glycoL 3350 17 GM POWD.PACK PO (08:33)
[2021-12-10] MEDS: ASPIRIN 325 MG ENTERIC TABLET 650 MG PO (08:33)
[2021-12-10] MEDS: HYDROcodone/acetaminophen (*CRX) 10-325 MG TABLET 1 TAB PO ×3 (08:34→20:08)
[2021-12-10] MEDS: ACETAMINOPHEN 325 MG TABLET 650 MG PO (08:34)
[2021-12-10 08:35] VITALS: PULSE 80
[2021-12-10] MEDS: ATORVASTATIN 10 MG TABLET 20 MG PO (08:35)
[2021-12-10] MEDS: carvediloL 12.5 MG TABLET PO ×2 (08:35→17:26)
[2021-12-10] MEDS: SENNA/DOCUSATE SODIUM TABLET 2 TAB PO ×2 (08:35→17:26)
[2021-12-10] MEDS: PANTOPRAZOLE 40 MG TABLET PO ×2 (08:36→20:07)
[2021-12-10] MEDS: ALENDRONATE SODIUM 70 MG TABLET PO (08:36)
[2021-12-10 16:00] VITALS: BP 115/60; PULSE 74; RESP 16; TEMP 36.2; O2SAT 96
[2021-12-10 17:26] VITALS: PULSE 74
--- NOTE | 2021-12-10 18:45 | PC.NURSE ---
Dressings changed to incisions. Well approximated. Hung in place. No s/s redness or infection. Patient tolerated well.
[2021-12-10] MEDS: amLODIPine BESYLATE 5 MG TABLET 10 MG PO (20:07)
[2021-12-11] VITALS: BP 121/76; PULSE 73; RESP 20; TEMP 36.3; O2SAT 98
[2021-12-11] MEDS: HYDROcodone/acetaminophen (*CRX) 10-325 MG TABLET 1 TAB PO ×3 (05:35→20:50)
[2021-12-11 08:00] VITALS: BP 145/80; PULSE 83; RESP 16; TEMP 36.2; O2SAT 98
[2021-12-11] MEDS: ACETAMINOPHEN 325 MG TABLET 650 MG PO (09:15)
[2021-12-11] MEDS: polyethylene glycoL 3350 17 GM POWD.PACK PO (09:20)
[2021-12-11] MEDS: SENNA/DOCUSATE SODIUM TABLET 2 TAB PO ×2 (09:30→16:53)
[2021-12-11] MEDS: ASPIRIN 325 MG ENTERIC TABLET 650 MG PO (09:38)
[2021-12-11 09:39] VITALS: PULSE 80
[2021-12-11] MEDS: carvediloL 12.5 MG TABLET PO ×2 (09:39→16:53)
[2021-12-11] MEDS: PANTOPRAZOLE 40 MG TABLET PO ×2 (09:39→20:50)
[2021-12-11] MEDS: ATORVASTATIN 10 MG TABLET 20 MG PO (11:14)
[2021-12-11 15:45] VITALS: BP 103/51; PULSE 64; RESP 16; TEMP 36.3; O2SAT 96
[2021-12-11 16:53] VITALS: PULSE 65
[2021-12-11 20:00] VITALS: PULSE 65; RESP 16; O2SAT 96
[2021-12-11] MEDS: amLODIPine BESYLATE 5 MG TABLET 10 MG PO (20:50)
[2021-12-11] MEDS: traZODone HCL 50 MG TABLET PO (20:50)
[2021-12-12] VITALS: BP 130/66; PULSE 68; RESP 16; TEMP 36.4; O2SAT 98
[2021-12-12] MEDS: HYDROcodone/acetaminophen (*CRX) 10-325 MG TABLET 1 TAB PO ×3 (05:23→20:33)
[2021-12-12 08:00] VITALS: BP 136/66; PULSE 70; RESP 16; TEMP 37.1; O2SAT 98
[2021-12-12] MEDS: SENNA/DOCUSATE SODIUM TABLET 2 TAB PO ×2 (09:18→16:58)
[2021-12-12] MEDS: polyethylene glycoL 3350 17 GM POWD.PACK PO (09:18)
[2021-12-12 09:19] VITALS: PULSE 85
[2021-12-12] MEDS: carvediloL 12.5 MG TABLET PO ×2 (09:19→16:57)
[2021-12-12] MEDS: ASPIRIN 325 MG ENTERIC TABLET 650 MG PO (09:20)
[2021-12-12] MEDS: ATORVASTATIN 10 MG TABLET 20 MG PO (09:20)
[2021-12-12] MEDS: ACETAMINOPHEN 325 MG TABLET 650 MG PO (09:21)
[2021-12-12] MEDS: PANTOPRAZOLE 40 MG TABLET PO ×2 (09:23→20:33)
--- NOTE | 2021-12-12 12:59 | PC.NURSE ---
Patient amb to/from bathroom using walker and gait belt with standby assist. Patient tolerated well.
--- NOTE | 2021-12-12 15:16 | PC.NURSE ---
Pt sitting in chair visiting c family. Pt reports pain medication has helped ease her pain at this time. Pt given ice pack to apply to her Rt hip while sitting in chair, no c/o or concerns, call olsen at pt side.
[2021-12-12 16:00] VITALS: BP 124/68; PULSE 84; RESP 20; TEMP 36.8; O2SAT 98
[2021-12-12 16:57] VITALS: PULSE 84
[2021-12-12] MEDS: amLODIPine BESYLATE 5 MG TABLET 10 MG PO (20:32)
[2021-12-13] VITALS: BP 153/55; PULSE 78; RESP 18; TEMP 36.4; O2SAT 97
[2021-12-13] MEDS: HYDROcodone/acetaminophen (*CRX) 10-325 MG TABLET 1 TAB PO ×2 (02:42→19:21)
[2021-12-13 08:00] VITALS: BP 107/62; PULSE 80; RESP 16; TEMP 36.5; O2SAT 97
--- NOTE | 2021-12-13 08:45 | WPDPN ---
Progress Note: A&P Assessment and Plan (1) Constipation due to opioid therapy: Code(s): K59.03 - Drug induced constipation; T40.2X5A - Adverse effect of other opioids, initial encounter Status: Acute Assessment and Plan: Having daily BM Daily MiraLAX and colace (2) Right knee pain: Qualifiers: Chronicity: chronic Qualified Code(s): M25.561 - Pain in right knee; G89.29 - Other chronic pain Code(s): M25.561 - Pain in right knee Status: Acute Assessment and Plan: controlled Physical therapy to evaluate and treat Hydrocodone for pain Ice as needed Elevate Toe-touch weightbearing (3) Hypertension: Qualifiers: Hypertension type: primary hypertension Qualified Code(s): I10 - Essential (primary) hypertension Code(s): I10 - Essential (primary) hypertension Status: Acute Assessment and Plan: Stable Continue home meds vs as ordered will adjust medications as ordered (4) Closed intertrochanteric fracture: Qualifiers: Encounter type: initial encounter Fracture alignment: displaced Laterality: right Qualified Code(s): S72.141A - Displaced intertrochanteric fracture of right femur, initial encounter for closed fracture Code(s): S72.143A - Displaced intertrochanteric fracture of unspecified femur, initial encounter for closed fracture Status: Acute Assessment and Plan: Physical therapy Toe-touch weightbearing Fall precaution (5) Weakness: Code(s): R53.1 - Weakness Status: Acute Assessment and Plan: ? Exhibit tolerance during physical activity as evidenced by a normal fluctuation of vital signs during physical activity. ? Patient will be ability to perform required activities of daily living. ? Provide appropriate nutrition for healing and strength. ? Use appropriate to prevent falls. ? Continue physical therapy/occupational therapy. Subjective Date/time seen: 12/13/21 08:45 Interval history: She has no complaints she notes that her physical therapy is going well, she is tolerating her meals she is having regular bowel movements. Patient notes that she does have a difficult time sleeping I will prescribe her Benadryl she is unsure if she has a reaction to trazodone or tramadol would avoid these medications. The patient denies SOB, CP, palpitation, extremity numbness, lightheadedness, dizziness, constipation, diarrhea, chills, or fever. Review of Systems Review of Systems: A 14 organ system Review of Systems was performed and pertinent positives included in the HPI, otherwise remaining ROS is negative. All systems reviewed & are unremarkable except as noted in HPI and below Exam Narrative: GENERAL:Well-appearing, well-nourished, and in no acute distress. HEAD:Normocephalic, atraumatic. EYES: PERRLA and EOMI. ENT: Nares clear, no rhinorrhea or epistaxis. Mucous membranes moist. NECK: Supple. CHEST: Clear to auscultation. No respiratory distress. HEART: Regular rate and rhythm. Normal peripheral pulses. ABDOMEN: Soft, nontender, nondistended, normal active bowel sounds. EXTREMITIES: Decreased range of motion bilaterally due to surgical procedure mild right leg edema. SKIN: Warm, dry, no rash. NEURO: No focal deficits. Alert and oriented x3. Objective Data Vital Signs Vital Signs: Vital Signs - 24 hr 12/12/21 09:19 12/12/21 16:00 12/12/21 16:57 Temperature 98.2 F Pulse Rate 85 84 84 Respiratory Rate 20 Blood Pressure 124/68 Pulse Oximetry 98 Oxygen Delivery Room Air 12/13/21 00:00 12/13/21 08:00 Temperature 97.5 F L 97.7 F Pulse Rate 78 80 Respiratory Rate 18 16 Blood Pressure 153/55 H 107/62 Pulse Oximetry 97 97 Oxygen Delivery Room Air Room Air Intake/Output Intake/Output: Intake & Output 12/10/21 12/11/21 12/12/21 12/13/21 23:59 23:59 23:59 23:59 Intake Total 1640 1537 1350 300 Balance 1640 1537 1350 300 Meds/Result
[2021-12-13] MEDS: SENNA/DOCUSATE SODIUM TABLET 2 TAB PO ×2 (09:10→17:40)
[2021-12-13] MEDS: polyethylene glycoL 3350 17 GM POWD.PACK PO (09:12)
[2021-12-13] MEDS: ACETAMINOPHEN 325 MG TABLET 650 MG PO (09:12)
[2021-12-13] MEDS: ATORVASTATIN 10 MG TABLET 20 MG PO (09:12)
[2021-12-13] MEDS: ASPIRIN 325 MG ENTERIC TABLET 650 MG PO (09:12)
[2021-12-13 09:13] VITALS: PULSE 78
[2021-12-13] MEDS: carvediloL 12.5 MG TABLET PO ×2 (09:13→17:40)
[2021-12-13] MEDS: PANTOPRAZOLE 40 MG TABLET PO ×2 (09:14→20:36)
[2021-12-13 16:00] VITALS: BP 158/70; PULSE 73; RESP 16; TEMP 36.4; O2SAT 98
[2021-12-13 17:40] VITALS: PULSE 70
[2021-12-13] MEDS: ACETAMINOPHEN 500 MG TABLET 1000 MG PO (17:41)
[2021-12-13] MEDS: amLODIPine BESYLATE 5 MG TABLET 10 MG PO (20:36)
[2021-12-14 04:20] VITALS: BP 135/61; PULSE 61; RESP 18; TEMP 36.4; O2SAT 96
[2021-12-14] MEDS: HYDROcodone/acetaminophen (*CRX) 10-325 MG TABLET 1 TAB PO ×3 (04:34→19:27)
--- NOTE | 2021-12-14 04:35 | PC.NURSE ---
Ice pack provided.
[2021-12-14 05:16] LABS: Hematocrit 31.6 % (35.0-42.0); Hemoglobin 10.2 g/dL (11.7-13.8); Mean Corpuscular HGB Conc 32.3 g/dL (32.0-36.0); Mean Corpuscular Hemoglobin 31.7 pg (27.0-31.0); Mean Corpuscular Volume 98.1 fL (78.0-102.0); Mean Platelet Volume 10.2 fl (9.2-11.8); Platelet Count Result 288 K/mm3 (150-420); Red Blood Count 3.22 M/mm3 (4.20-5.40); White Blood Count 7.2 K/mm3 (4.8-10.8)
[2021-12-14 05:33] LABS: Anion Gap 7 mmol/L (8-16); Blood Urea Nitrogen 17 mg/dL (7-18); Calcium 8.3 mg/dL (8.5-10.1); Carbon Dioxide 27 mmol/L (21-32); Chloride 109 mmol/L (98-108); Estimated CRCL calculation 43 ml/min; Estimated Glomerular Filt Rate 51; Glucose 98 mg/dL (70-99); Osmolality Calculated 297 mOsm/kg (285-295); Sodium 143 mmol/L (136-145)
[2021-12-14 08:00] VITALS: BP 117/55; PULSE 79; RESP 16; TEMP 36.6; O2SAT 98
[2021-12-14] MEDS: ACETAMINOPHEN 325 MG TABLET 650 MG PO (08:27)
[2021-12-14] MEDS: polyethylene glycoL 3350 17 GM POWD.PACK PO (08:27)
[2021-12-14] MEDS: ATORVASTATIN 10 MG TABLET 20 MG PO (08:28)
[2021-12-14] MEDS: SENNA/DOCUSATE SODIUM TABLET 2 TAB PO ×2 (08:28→16:42)
[2021-12-14 08:29] VITALS: PULSE 82
[2021-12-14] MEDS: PANTOPRAZOLE 40 MG TABLET PO ×2 (08:29→20:27)
[2021-12-14] MEDS: carvediloL 12.5 MG TABLET PO ×2 (08:29→16:42)
[2021-12-14] MEDS: ASPIRIN 325 MG ENTERIC TABLET 650 MG PO (08:30)
[2021-12-14 16:00] VITALS: BP 121/67; PULSE 67; RESP 16; TEMP 36.6; O2SAT 98
[2021-12-14 16:42] VITALS: PULSE 67
[2021-12-14] MEDS: amLODIPine BESYLATE 5 MG TABLET 10 MG PO (20:27)
[2021-12-15] VITALS (7 sets, daily range): BP systolic 115–137; BP diastolic 53–68; PULSE 64–78; RESP 16–18; TEMP 36.4–36.8; O2SAT 94–98
[2021-12-15] MEDS: HYDROcodone/acetaminophen (*CRX) 10-325 MG TABLET 1 TAB PO ×3 (05:27→21:07)
[2021-12-15] MEDS: polyethylene glycoL 3350 17 GM POWD.PACK PO (08:37)
[2021-12-15] MEDS: ACETAMINOPHEN 325 MG TABLET 650 MG PO (08:37)
[2021-12-15] MEDS: SENNA/DOCUSATE SODIUM TABLET 2 TAB PO ×2 (08:38→17:19)
[2021-12-15] MEDS: ASPIRIN 325 MG ENTERIC TABLET 650 MG PO (08:38)
[2021-12-15] MEDS: ATORVASTATIN 10 MG TABLET 20 MG PO (08:39)
[2021-12-15] MEDS: PANTOPRAZOLE 40 MG TABLET PO ×2 (08:39→20:36)
[2021-12-15] MEDS: carvediloL 12.5 MG TABLET PO ×2 (08:39→17:19)
--- NOTE | 2021-12-15 18:43 | PC.NURSE ---
Dressings changed and CDI. No S/S redness or infection.
[2021-12-15] MEDS: amLODIPine BESYLATE 5 MG TABLET 10 MG PO (20:36)
[2021-12-16 08:00] VITALS: BP 135/63; PULSE 77; RESP 14; TEMP 36.3; O2SAT 96
[2021-12-16] MEDS: ASPIRIN 325 MG ENTERIC TABLET 650 MG PO (09:30)
[2021-12-16 09:43] VITALS: PULSE 78
[2021-12-16] MEDS: carvediloL 12.5 MG TABLET PO ×2 (09:43→17:28)
[2021-12-16] MEDS: ACETAMINOPHEN 325 MG TABLET 650 MG PO (09:43)
[2021-12-16] MEDS: polyethylene glycoL 3350 17 GM POWD.PACK PO (09:43)
[2021-12-16] MEDS: SENNA/DOCUSATE SODIUM TABLET 2 TAB PO (09:44)
[2021-12-16] MEDS: ATORVASTATIN 10 MG TABLET 20 MG PO (09:44)
[2021-12-16] MEDS: PANTOPRAZOLE 40 MG TABLET PO ×2 (09:45→21:08)
[2021-12-16 16:45] VITALS: BP 143/63; PULSE 73; RESP 18; TEMP 36.5; O2SAT 98
[2021-12-16 17:28] VITALS: PULSE 73
[2021-12-16] MEDS: amLODIPine BESYLATE 5 MG TABLET 10 MG PO (21:08)
[2021-12-16] MEDS: HYDROcodone/acetaminophen (*CRX) 10-325 MG TABLET 1 TAB PO (21:09)
[2021-12-16 23:56] VITALS: BP 123/55; PULSE 61; RESP 15; TEMP 36.4; O2SAT 97
[2021-12-17] MEDS: ACETAMINOPHEN 500 MG TABLET 1000 MG PO (06:15)
[2021-12-17 08:00] VITALS: BP 145/70; PULSE 70; RESP 16; TEMP 36.4; O2SAT 98
[2021-12-17] MEDS: ACETAMINOPHEN 325 MG TABLET 650 MG PO (09:35)
[2021-12-17] MEDS: ATORVASTATIN 10 MG TABLET 20 MG PO (09:37)
[2021-12-17] MEDS: PANTOPRAZOLE 40 MG TABLET PO ×2 (09:37→20:56)
[2021-12-17] MEDS: ASPIRIN 325 MG ENTERIC TABLET 650 MG PO (09:37)
[2021-12-17 09:38] VITALS: PULSE 78
[2021-12-17] MEDS: carvediloL 12.5 MG TABLET PO ×2 (09:38→17:40)
[2021-12-17 16:40] VITALS: BP 141/65; PULSE 69; RESP 18; TEMP 36.3; O2SAT 97
[2021-12-17 17:40] VITALS: PULSE 69
[2021-12-17] MEDS: HYDROcodone/acetaminophen (*CRX) 10-325 MG TABLET 1 TAB PO (20:56)
[2021-12-17] MEDS: amLODIPine BESYLATE 5 MG TABLET 10 MG PO (20:56)
[2021-12-17 23:06] VITALS: BP 145/62; PULSE 76; RESP 16; TEMP 36.8; O2SAT 97
[2021-12-18 08:00] VITALS: BP 139/54; PULSE 74; RESP 14; TEMP 36.4; O2SAT 97
[2021-12-18] MEDS: ACETAMINOPHEN 325 MG TABLET 650 MG PO (09:17)
[2021-12-18 09:18] VITALS: PULSE 72
[2021-12-18] MEDS: ASPIRIN 325 MG ENTERIC TABLET 650 MG PO (09:18)
[2021-12-18] MEDS: PANTOPRAZOLE 40 MG TABLET PO ×2 (09:18→20:53)
[2021-12-18] MEDS: carvediloL 12.5 MG TABLET PO ×2 (09:18→16:59)
[2021-12-18] MEDS: ATORVASTATIN 10 MG TABLET 20 MG PO (09:18)
[2021-12-18 16:00] VITALS: BP 139/71; PULSE 72; RESP 20; TEMP 36.4; O2SAT 98
[2021-12-18 16:59] VITALS: PULSE 72
[2021-12-18 20:00] VITALS: PULSE 72; RESP 20; O2SAT 98
[2021-12-18] MEDS: amLODIPine BESYLATE 5 MG TABLET 10 MG PO (20:53)
[2021-12-18] MEDS: HYDROcodone/acetaminophen (*CRX) 10-325 MG TABLET 1 TAB PO (20:53)
[2021-12-19] VITALS: BP 134/63; PULSE 69; RESP 18; TEMP 36.5; O2SAT 98
[2021-12-19 07:37] VITALS: BP 150/64; PULSE 70; RESP 18; O2SAT 97
[2021-12-19] MEDS: ASPIRIN 325 MG ENTERIC TABLET 650 MG PO (08:44)
[2021-12-19 08:45] VITALS: PULSE 64
[2021-12-19] MEDS: PANTOPRAZOLE 40 MG TABLET PO ×2 (08:45→20:33)
[2021-12-19] MEDS: ACETAMINOPHEN 325 MG TABLET 650 MG PO (08:45)
[2021-12-19] MEDS: carvediloL 12.5 MG TABLET PO ×2 (08:45→16:42)
[2021-12-19] MEDS: ATORVASTATIN 10 MG TABLET 20 MG PO (08:46)
--- NOTE | 2021-12-19 08:59 | P.PNCROSS_ITS ---
Event Note Event Note Event Note: Patient requires a wheeled walker to perform ADLs in the home due to abnormal g ait. Patient is not able to complete ADLs using a cane. Functional mobility deficiency will be sufficiently resolved by using walker. Patient is able to safely use walker and agrees to use walker.
[2021-12-19 16:00] VITALS: BP 141/76; PULSE 76; RESP 16; TEMP 36.3; O2SAT 98
[2021-12-19 16:42] VITALS: PULSE 76
[2021-12-19] MEDS: HYDROcodone/acetaminophen (*CRX) 10-325 MG TABLET 1 TAB PO (20:31)
[2021-12-19] MEDS: amLODIPine BESYLATE 5 MG TABLET 10 MG PO (20:33)
[2021-12-20] VITALS: BP 146/54; PULSE 67; RESP 16; TEMP 36.2; O2SAT 96
[2021-12-20 08:00] VITALS: BP 150/60; PULSE 78; RESP 14; TEMP 36.6; O2SAT 98
[2021-12-20] MEDS: ATORVASTATIN 10 MG TABLET 20 MG PO (09:04)
[2021-12-20] MEDS: ASPIRIN 325 MG ENTERIC TABLET 650 MG PO (09:04)
[2021-12-20] MEDS: PANTOPRAZOLE 40 MG TABLET PO (09:04)
[2021-12-20 09:05] VITALS: PULSE 78
[2021-12-20] MEDS: ACETAMINOPHEN 325 MG TABLET 650 MG PO (09:05)
[2021-12-20] MEDS: carvediloL 12.5 MG TABLET PO (09:05)
--- NOTE | 2021-12-20 09:17 | PM.DS ---
DS: Admitting Diagnosis Discharge Date 12/20/2021 Admitting Diagnosis Rehab, hip repair DS: Discharge Diagnosis Discharge Diagnosis (1) Constipation due to opioid therapy: Code(s): K59.03 - Drug induced constipation; T40.2X5A - Adverse effect of other opioids, initial encounter Status: Acute Assessment and Plan: Having daily BM Daily MiraLAX and colace (2) Right knee pain: Qualifiers: Chronicity: chronic Qualified Code(s): M25.561 - Pain in right knee; G89.29 - Other chronic pain Code(s): M25.561 - Pain in right knee Status: Acute Assessment and Plan: controlled Physical therapy to evaluate and treat Hydrocodone for pain Ice as needed Elevate Toe-touch weightbearing (3) Hypertension: Qualifiers: Hypertension type: primary hypertension Qualified Code(s): I10 - Essential (primary) hypertension Code(s): I10 - Essential (primary) hypertension Status: Acute Assessment and Plan: Stable Continue home meds vs as ordered will adjust medications as ordered (4) Closed intertrochanteric fracture: Qualifiers: Encounter type: initial encounter Fracture alignment: displaced Laterality: right Qualified Code(s): S72.141A - Displaced intertrochanteric fracture of right femur, initial encounter for closed fracture Code(s): S72.143A - Displaced intertrochanteric fracture of unspecified femur, initial encounter for closed fracture Status: Acute Assessment and Plan: Physical therapy Toe-touch weightbearing Fall precaution (5) Weakness: Code(s): R53.1 - Weakness Status: Acute Assessment and Plan: ? Exhibit tolerance during physical activity as evidenced by a normal fluctuation of vital signs during physical activity. ? Patient will be ability to perform required activities of daily living. ? Provide appropriate nutrition for healing and strength. ? Use appropriate to prevent falls. ? Continue physical therapy/occupational therapy. DS: Summary Hospital Course Reason for hospitalization: REHAB, repair of a hip fracture Hospital Course: This is a 66-year-old female that presented as a swing bed after repair from a hip fracture [facility]. Patient came in participated with physical therapy and has advanced and done well she will go home and participate as outpatient for therapy. Patient is to remain on aspirin therapy for 28 days where she will follow-up with her orthopedist. Ms. Workman has a past medical history of hypertension, osteoporosis, dyslipidemia, obesity, and arthritis. Patient's pain is well under control she has been eating and drinking without any difficulties has remained afebrile no nausea vomiting and/or diarrhea vitals have remained stable last set was temperature was 97 8, respirations 14, pulse 78, blood pressure was 150/60. Patient was anxious to go home she will see physical therapy as outpatient on appointment already set up as outpatient for her for her primary care provider to take home. Time Spent with Patient Time attestation: Total time spent providing and/or coordinating discharge services: Exam Narrative: GENERAL:Well-appearing, well-nourished, and in no acute distress. HEAD:Normocephalic, atraumatic. EYES: PERRLA and EOMI. ENT: Nares clear, no rhinorrhea or epistaxis. Mucous membranes moist. NECK: Supple. CHEST: Clear to auscultation. No respiratory distress. HEART: Regular rate and rhythm. Normal peripheral pulses. ABDOMEN: Soft, nontender, nondistended, normal active bowel sounds. EXTREMITIES: Decreased range of motion bilaterally due to surgical procedure mild right leg edema. SKIN: Warm, dry, no rash. NEURO: No focal deficits. Alert and oriented x3. Discharge Plan Discharge Attending physician on discharge: Lissa Robert Consulting providers: Lissa Robert ; [facility]
--- NOTE | 2021-12-20 10:55 | PC.NURSE ---
Pt discharged home to family. Pt instructed regarding home medications, pain medications, and follow up appointments. Pt states she already has an appointment with Dr. Arash mei. Pt has an appointment on 12/26 with out pt PT. All belongings sent with pt. RN took pt to the family car in a and assisted her into the car.
--- NOTE | 2021-12-26 11:12 | PC.NURSE ---
Unable to contact for discharge call back.
== END 2021-12-20 10:45 | disposition home or self-care (01) | DRG 561 ==
PROVIDERS: Nurse Practitioner; Admitting Provider Internal Medicine; PCP Internal Medicine; Visit Provider Internal Medicine
DX: S72.141D Displaced intertrochanteric fracture of right femur, subsequent encounter for closed fracture with routine healing (principal); W19.XXXD Unspecified fall, subsequent encounter; K59.03 Drug induced constipation; T40.2X5A Adverse effect of other opioids, initial encounter; I10 Essential (primary) hypertension; E78.5 Hyperlipidemia, unspecified; E66.9 Obesity, unspecified; M81.0 Age-related osteoporosis without current pathological fracture; M25.561 Pain in right knee
CPT/HCPCS: 36415; 80048; 85027; 97110; 97116; 97161; 97165; 97530; 97535; A9270

== ENCOUNTER 2021-12-26 10:52 | Outpatient (RCR) | payer MEDICARE, SELFPAY ==
--- NOTE | 2021-12-26 11:51 | PTOPEVAL1 ---
Assessment and note entered by JT File, PT Evaluation Information Assessment Status Evaluation Diagnosis p/o ORIF R intertrochanteric fracture of femur. Onset 12/02/21 Subjective Information patient has been home from skilled swing bed care since 12/20/21. she is attending outpatient skilled PT now for post fracture and hip pinning rehad. she is using a walker at all times for ambulation. she is to be TTWB on the R LE until follow up with surgeon on 01/15/22. she reports she has noticed a few times she has put more than TTWB on the R LE during walking and has had increased pain. prior to fall, patient had steps to enter home, and was independent with all self care and ADL's. she now has a ramp for entry into house. Reported Pain Level Pain Score 1: Self Report Assessment PT Clinical Summary mrs. roberts presents to skilled PT for evaluation and treatment of weakness, decreased rom, and abnormal gait mechanics following a fall and fracture of the R hip. she is limited to TTWB on the R LE until follow up with surgeon on 01/15/22. she presents this date with education still needed to safe gait mechanics and maintaining WB precautions 100% of the time. she also display weakness and decreased rom of the R LE. she would do well to attend and participate in skilled PT services to return to her prior level functional activity performance and quality of life. Plan of Care Interventions Electrical Stimulation,Gait Training,Neuro Re- education,Patient/Caregiver Educati,Therapeutic Activities,Therapeutic Exercise PT Services Indicated Yes Treatment Frequency and 3x weekly for 12 visits Duration These treatments will address the objective and functional deficits as defined above. The patient will be advanced safely and appropriately in order for the patient to progress towards his/her prior level of function. Additional exercises will be introduced and as well as a comprehensive home exercise program upon discharge, if needed, ?to ensure carryover of functional gains achieved in the clinic. This treatment plan has been reviewed and agreement upon by the patient.
--- NOTE | 2022-01-23 12:03 | PTOPREEVAL ---
Assessment and note entered by JT File, PT Evaluation Information Assessment Status Re-evaluation Diagnosis p/o ORIF R intertrochanteric fracture of femur. Onset 12/02/21 Subjective Information patient reports she is a bit sore this date. she reports the pain is tolerable, but is a 4/10 in the R hip today. she reports she struggles still with puting full weight through the R LE. she reports she is complicated by having had pain in the R knee prior to her fall and fracture of the R hip. Reported Pain Level Pain Score 4: Self Report Assessment PT Clinical Summary mrs. roberts continues to be weak in the R hip with flexion exercises. she also continues to have pain in the R hip and thigh with full weight bearing. she does tolerate ambulation with improved weight bearing on the R LE with walker, and is able to ambulate with cane some today, but antalgia is worse, steps are shorter, and pain is increased. she was educated in exercises/ activities this date to improve her gait mechanics with both AD's, and to improve her LE strength. patient has made progress towards all goals, but has only formally met goal for HEP performance thus far. she would do well to continue skilled PT with focus on full achievement of goals, return of good+ or better strength, and return to normal gait mechanics/stair ambulation with a cane or less AD. Plan of Care Interventions Gait Training,Manual Therapy,Neuro Re-education, Patient/Caregiver Educati,Therapeutic Activities, Therapeutic Exercise PT Services Indicated Yes Treatment Frequency and continue skilled PT 3x weekly for 13 more visits Duration These treatments will address the objective and functional deficits as defined above. The patient will be advanced safely and appropriately in order for the patient to progress towards his/her prior level of function. Additional exercises will be introduced and as well as a comprehensive home exercise program upon discharge, if needed, ?to ensure carryover of functional gains achieved in the clinic. This treatment plan has been reviewed and agreement upon by the patient.
--- NOTE | 2022-02-26 18:11 | PTOPEVAL1 ---
Assessment and note entered by Eugene Bailey Evaluation Information Assessment Status Progress Diagnosis p/o ORIF R intertrochanteric fracture of femur Onset 12/02/21 Subjective Information Pt. reports that she is still using her walker with most activities. She reports that she is still limited due to pain. She reports that she has not been aggressive in using her cane at home and is fearful due to pain. She states that she still would like to continue with PT in order to fully transition to use of her cane. Reported Pain Level Pain Score 2: Self Report Assessment PT Clinical Summary Pt. continues to demonstrate progress. Despite her progress she has not met her goal of transtion to cane usage. At this time recommend continued skilled PT focusing on transition to cane usage and developing improved independence with IADL performance. Plan of Care Interventions Gait Training,Manual Therapy,Neuro Re-education, Therapeutic Activities,Therapeutic Exercise,Self- Care/Home Management PT Services Indicated Yes Treatment Frequency and 1x/week x 5 visits Duration These treatments will address the objective and functional deficits as defined above. The patient will be advanced safely and appropriately in order for the patient to progress towards his/her prior level of function. Additional exercises will be introduced and as well as a comprehensive home exercise program upon discharge, if needed, ?to ensure carryover of functional gains achieved in the clinic. This treatment plan has been reviewed and agreement upon by the patient.
--- NOTE | 2022-04-17 11:01 | PTOPDC ---
Assessment and note entered by JT File, PT Evaluation Information Assessment Status Discharge Diagnosis p/o ORIF R intertrochanteric fracture of femur Onset 12/02/21 Subjective Information patient reports she continues to have pain in the R hip. she reports however, her pain is less with ambulation with a cane. she reports she has not been in therapy for a few weeks due to having a in the family. however, she reports she was compliant with her HEP most of the days away from therapy. Reported Pain Level Pain Score 2: Self Report Assessment PT Clinical Summary mrs. roberts presents to skilled PT services for her 25th skilled therapy visit. she has met lawanda all goals for therapy except for pain, LEFS, and hip ER arom goals. she will DC therapy this date, and continue with HEP independent at home. Plan of Care Treatment Frequency and DC to independent HEP Duration
== END 2022-04-17 14:26 | disposition home or self-care (01) ==
LOC: CHSPT 10:52
PROVIDERS: Visit Provider Orthopaedic Surgery
DX: S72.141A Displaced intertrochanteric fracture of right femur, initial encounter for closed fracture (principal)
CPT/HCPCS: 97110; 97112; 97116; 97161; 97530

== ENCOUNTER 2022-01-09 13:15 | Outpatient (CLI) | payer MEDICARE, SELFPAY ==
--- NOTE | ~2022-01-09 | MM_ITS ---
EXAMINATION: MM screening [facility] BI w davian HISTORY: Screening TECHNIQUE: Craniocaudal and mediolateral oblique 3-D tomosynthesis images were obtained and synthetic 2-D images were generated. CAD analysis was submitted and interpreted. COMPARISON: Comparison to multiple prior studies sequentially, with oldest reviewed study dated 08/2016. BREAST PARENCHYMAL COMPOSITION: The breasts are heterogeneously dense, which may obscure small masses FINDINGS: There is no evidence of suspicious mass, calcification, or architectural distortion to sugg est malignancy in either breast. There has been no suspicious interval change. IMPRESSION: 1. No mammographic evidence of malignancy. 2. Recommend routine screening mammography in one year. BI-RADS Category 1: Negative Reviewed, dictated and finalized at location A.
== END 2022-01-09 13:16 | disposition home or self-care (01) ==
LOC: CHSIMG 13:17
PROVIDERS: PCP Internal Medicine; Visit Provider Internal Medicine
DX: Z12.31 Encounter for screening mammogram for malignant neoplasm of breast (principal)
CPT/HCPCS: 77063; 77067

== ENCOUNTER 2022-01-12 11:45 | Outpatient (CLI) | payer MEDICARE, SELFPAY ==
--- NOTE | ~2022-01-12 | US_ITS ---
EXAMINATION: US venous doppler [facility] DATE: 01/12/2022 12:54 INDICATION: Right lower limb swelling. TECHNIQUE: Grayscale ultrasound images without and with compression and Doppler ultrasound images of the bilateral lower extremity veins were obtained. COMPARISON: None. FINDINGS: The visualized portions of right common femoral vein, profunda (deep) femoral vein, and greater saphe nous vein outflow are patent. There is thrombus in right femoral vein, popliteal vein, and posterior tibial and peroneal veins. The visualized portions of left common femoral vein, profunda femoral vein, femoral vein, popliteal v ein, peroneal veins, posterior tibial veins, and greater saphenous vein outflow are patent. IMPRESSION: 1. Deep vein thrombosis involving right femoral vein, popliteal vein, and posterior tibial and peron eal veins. Reviewed, dictated and finalized at location A. IMPRESSION: 1. Deep vein thrombosis involving right femoral vein, popliteal vein, and post erior tibial and peroneal veins.
[2022-01-12 12:15] LABS: Add Urine Microscopic? NO; Appearance Urine Clear (Clear); Bilirubin Urine Negative (Negative); Blood Urine Negative (Negative); Color Urine Yellow (Yellow); Glucose Urine UA Negative (Negative); Ketones Urine Negative (Negative); Leukocyte Esterase Ur Negative (Negative); Nitrate Urine Negative (Negative); Protein Urine Negative (Negative); Specific Grav Ur >= 1.030 (1.010-1.020); Urobilinogen Urine 0.2 mg/dL (0.2-1.0)
== END 2022-01-12 11:46 | disposition home or self-care (01) ==
LOC: CHSIMG 11:47
PROVIDERS: PCP Internal Medicine; Visit Provider Internal Medicine
DX: R60.9 Edema, unspecified (principal); R35.89 Other polyuria; I82.411 Acute embolism and thrombosis of right femoral vein
CPT/HCPCS: 81003; 87086; 87088; 93970

== ENCOUNTER 2022-04-12 10:27 | Outpatient (CLI) | payer MEDICARE, SELFPAY ==
--- NOTE | ~2022-04-12 | US_ITS ---
EXAMINATION: US venous doppler LE RT DATE: 04/12/2022 11:46 INDICATION: Recent acute deep venous thrombosis currently on anticoagulation. TECHNIQUE: Grayscale ultrasound images without and with compression and Doppler ultrasound images of the right lower extremity veins were obtained. COMPARISON: 01/12/2022 FINDINGS: There is small amount of residual deep venous thrombosis in one of the paired right posterior tibial veins at the calf. The second, previously thrombosed right posterior tibial vein as well as the previ ously thrombosed right femoral, popliteal and peroneal veins all now appear patent and compressible. The visualized portions of right common femoral vein, profunda (deep) femoral vein, gastrocnemius vei n and greater saphenous vein outflow remain patent. IMPRESSION: 1. Interval resolution of the majority of the prior deep venous thrombosis with residual thrombosis of one of the paired right posterior tibial veins and calf. Reviewed, dictated and finalized at location A. 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 Interval resolution of the majority of the prior deep venous thrombosis wit h residual thrombosis of one of the paired right posterior tibial veins and rudi f.
== END 2022-04-12 10:28 | disposition home or self-care (01) ==
LOC: CHSIMG 10:29
PROVIDERS: PCP Internal Medicine; Visit Provider Internal Medicine
DX: I82.401 Acute embolism and thrombosis of unspecified deep veins of right lower extremity (principal)
CPT/HCPCS: 93971

== ENCOUNTER 2022-06-07 11:11 | Outpatient (CLI) | payer MEDICARE, SELFPAY ==
--- NOTE | ~2022-06-07 | XR_ITS ---
Left Knee Technique: AP, lateral, and sunrise views were obtained. Clinical History: Pain Findings: No fracture or dislocation is seen. Osseous alignment is anatomic. There is moderate degene rative change of the medial compartment. There is minimal degenerative change at the patellofemoral a nd lateral compartments. Soft tissues are unremarkable. No joint effusion is seen. Impression: Tricompartmental osteoarthritis, as above, worst in the medial compartment. Reviewed, dictated and finalized at location M. Impression: Tricompartmental osteoarthritis, as above, worst in the medial compartment.
== END 2022-06-07 11:12 | disposition home or self-care (01) ==
LOC: CHSIMG 11:12
PROVIDERS: PCP Internal Medicine; Visit Provider Internal Medicine
DX: M25.562 Pain in left knee (principal); M17.12 Unilateral primary osteoarthritis, left knee
CPT/HCPCS: 73562

== ENCOUNTER 2022-08-02 09:54 | Outpatient (CLI) | payer MEDICARE, SELFPAY ==
--- NOTE | ~2022-08-02 | US_ITS ---
EXAMINATION: US venous doppler LE DATE: 08/02/2022 10:30 INDICATION: Right lower limb deep venous thrombosis TECHNIQUE: Grayscale ultrasound images without and with compression and Doppler ultrasound images of the right lower extremity veins were obtained. COMPARISON: None. FINDINGS: The visualized portions of right common femoral vein, profunda (deep) femoral vein, femoral vein, pop liteal vein, peroneal trunk, posterior tibial veins, peroneal veins, gastrocnemius vein and greater s aphenous vein outflow are patent. IMPRESSION: 1. No deep venous thrombosis in the right lower limb. Reviewed, dictated and finalized at location A.
== END 2022-08-02 09:55 | disposition home or self-care (01) ==
PROVIDERS: PCP Internal Medicine; Visit Provider Internal Medicine
DX: I82.401 Acute embolism and thrombosis of unspecified deep veins of right lower extremity (principal)
CPT/HCPCS: 93971

== ENCOUNTER 2023-01-11 12:08 | Outpatient (CLI) | payer MEDICARE, SELFPAY ==
--- NOTE | ~2023-01-11 | MM_ITS ---
EXAMINATION: MM screening [facility] BI w davian HISTORY: Screening mammogram TECHNIQUE: Craniocaudal and mediolateral oblique 3-D tomosynthesis images were obtained and synthetic 2-D images were generated. CAD analysis was submitted and interpreted. COMPARISON: 01/09/2022, 12/06/2020, 12/02/2019 BREAST PARENCHYMAL COMPOSITION: The breasts are heterogeneously dense, which may obscure small masses . FINDINGS: No suspicious mass, calcification, or architectural distortion are identified in either dalia ast to suggest malignancy. There has been no suspicious interval change. IMPRESSION: 1. No mammographic evidence of malignancy. 2. Recommend routine screening mammography in one year. BI-RADS Category 1: Negative Reviewed, dictated and finalized at location A.
== END 2023-01-11 12:09 | disposition home or self-care (01) ==
LOC: CHSIMG 12:10
PROVIDERS: PCP Internal Medicine; Visit Provider Internal Medicine
DX: Z12.31 Encounter for screening mammogram for malignant neoplasm of breast (principal)
CPT/HCPCS: 77063; 77067

== ENCOUNTER 2023-03-21 13:35 | Outpatient (CLI) | payer MEDICARE, SELFPAY ==
--- NOTE | ~2023-03-21 | DEXA_ITS ---
Bone Density Report Name: MONSERRAT TORRES Age: 67 Sex: Female Ethnicity: White Date of : 1955 Indication: postmenopausal; screening for osteoporosis; parental hip fracture; height loss; prior fracture; Referring Provider: Yarelis Antoine Study: Bone densitometry was performed. Exam Date: March 21, 2023 Accession number: [id number] Bone Density: Region BMD T-score Z-score Classification AP Spine(L1-L4) 0.764 -2.6 -0.5 Osteoporosis Femoral Neck (Left) 0.532 -2.9 -1.1 Osteoporosis Total Hip (Left) 0.768 -1.4 0.0 Osteopenia World Health Organization criteria for BMD impression classify patients as: Normal (T-score at or above -1.0), Osteopenia (T-score between -1.0 and -2.5), or Osteoporosis (T-score at or below -2.5). 10-year Fracture Risk: FRAX not reported because: Some T-score for Spine Total or Hip Total or Femoral Neck at or below -2.5 Prior hip or vertebral fracture Treated for osteoporosis Clinical Information Provided by Patient: Have had a previous hip or vertebral fracture Has had a low trauma fracture Parent has had a hip fracture Is being treated for osteoporosis Patient maximum height was 61 Menopause Age: 48 Drinks caffeinated beverages Onset of menses at age 10 Number of children 0 Impression: The patient has established osteoporosis, based on the Left Femoral Neck T-score and the existence of a prior fracture. The patient has risk factors, including: parental hip fracture, previous fracture. Discussion: It is important to ask patients whether they are taking their medications and to encourage continued and appropriate compliance with their osteoporosis therapies to reduce fracture risk. It is also important to review their risk factors and encourage appropriate calcium and vitamin D intakes, exercise, fall prevention and other lifestyle measures. Follow-Up: Consider a repeat BMD and Vertebral Fracture Assessment (VFA) exam in 2 years or sooner if medically necessary, to reassess this patient's status. Reported by: Dr. Paolo Wooten on 03/21/2023 2:06:00 PM. Reviewed, dictated and finalized at location [facility]
== END 2023-03-21 13:36 | disposition home or self-care (01) ==
LOC: CHSIMG 13:37
PROVIDERS: PCP Internal Medicine; Visit Provider Internal Medicine
DX: M81.0 Age-related osteoporosis without current pathological fracture (principal); M85.88 Other specified disorders of bone density and structure, other site
CPT/HCPCS: 77080

== ENCOUNTER 2023-08-23 09:21 | Outpatient (CLI) | payer MEDICARE, SELFPAY ==
--- NOTE | ~2023-08-23 | US_ITS ---
Limited Abdominal Sonogram: Real-time sonographic imaging of the right upper quadrant was performed. Clinical History: Right upper quadrant pain Findings: The liver appears normal with no evidence of mass lesion or bile duct dilatation. Main por nicolás vein demonstrates normal direction of flow. The gallbladder is well distended, and appears normal with no evidence of gallstone or wall thickening. The common bile duct measures 3 mm. The visualize d pancreas, aorta, and IVC are unremarkable. Impression: No significant abnormality seen. Reviewed, dictated and finalized at location M. Impression: No significant abnormality seen.
== END 2023-08-23 09:22 | disposition home or self-care (01) ==
LOC: CHSIMG 09:23
PROVIDERS: PCP Internal Medicine; Visit Provider Internal Medicine
DX: R10.11 Right upper quadrant pain (principal); R11.0 Nausea
CPT/HCPCS: 76705

== ENCOUNTER 2023-09-27 13:50 | Outpatient (CLI) | payer MEDICARE, SELFPAY ==
--- NOTE | ~2023-09-27 | XR_ITS ---
XR foot LT min 3V Ordering provider: Yarelis Antoine MD History: . L FOOT INJURY-stepped on walnut. Pain around 5th metatarsal . Comparison: None. FINDINGS: BONES: No acute fracture or dislocation. Calcaneal spur. JOINT SPACES: Narrowing of the interphalangeal joints. No tarsal coalition. SOFT TISSUES: Normal. IMPRESSION: No acute osseous abnormality left foot. Reviewed, dictated and finalized at location A.
== END 2023-09-27 13:51 | disposition home or self-care (01) ==
PROVIDERS: PCP Internal Medicine; Visit Provider Internal Medicine
DX: S99.922A Unspecified injury of left foot, initial encounter (principal)
CPT/HCPCS: 73630

== ENCOUNTER 2024-03-12 13:29 | Outpatient (CLI) | payer MEDICARE, SELFPAY ==
--- NOTE | ~2024-03-12 | MM_ITS ---
EXAMINATION: MM screening [facility] BI w davian HISTORY: Screening mammogram TECHNIQUE: Craniocaudal and mediolateral oblique 3-D tomosynthesis images were obtained and synthetic 2-D images were generated. CAD analysis was submitted and interpreted. COMPARISON: 01/11/2023, 01/09/2022, 12/06/2020 BREAST PARENCHYMAL COMPOSITION:Not Dense. There are scattered areas of fibroglandular density. FINDINGS: No suspicious mass, calcification, or architectural distortion are identified in either dalia ast to suggest malignancy. There has been no suspicious interval change. IMPRESSION: No mammographic evidence of malignancy. Recommend routine screening mammography in one year. BI-RADS Category 1: Negative Reviewed, dictated and finalized at location . 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
== END 2024-03-12 13:30 | disposition home or self-care (01) ==
PROVIDERS: PCP Internal Medicine; Visit Provider Internal Medicine
DX: Z12.31 Encounter for screening mammogram for malignant neoplasm of breast (principal)
CPT/HCPCS: 77063; 77067

== ENCOUNTER 2024-06-01 13:44 | Outpatient (CLI) | payer MEDICARE, SELFPAY ==
--- NOTE | ~2024-06-01 | XR_ITS ---
XR sacrum coccyx min 2V Ordering provider: Yarelis Antoine MD History: . INJURY 8 DAYS AGO,FELL BACKWARDS, PAIN IN SPINE/PELVIS,STIFF . Comparison: None. FINDINGS: BONES: Step-off in the distal sacrum is seen which may indicate a fracture. CT evaluation advised. Hi ghly suggestive fracture of the coccyx with no significant displacement. JOINTS: The sacroiliac joint spaces are normal. SOFT TISSUES: Normal. IMPRESSION: Possible fracture in the sacrum and coccyx. CT evaluation advised. Reviewed, dictated and finalized at location A.
--- NOTE | ~2024-06-01 | XR_ITS ---
3 VIEWS LUMBAR SPINE Ordering provider: Yarelis Antoine MD History: . INJURY 8 DAYS AGO,FELL BACKWARDS, PAIN IN SPINE/PELVIS,STIFF . Comparison: None. FINDINGS: VERTEBRAL BODIES: No visible fracture or subluxation. Degenerative changes of the spine. DISK SPACES: Normal. Facet joint disease at the level of L4-L5 and L5-S1. SOFT TISSUES: Atherosclerotic changes of the aorta. IMPRESSION: No acute osseous abnormality lumbar spine. Reviewed, dictated and finalized at location A.
--- NOTE | ~2024-06-01 | XR_ITS ---
XR hip BI 2V w AP pelvis Ordering provider: Yarelis Antoine MD History: . INJURY 8 DAYS AGO,FELL BACKWARDS, PAIN IN SPINE/PELVIS,STIFF . Comparison: None. FINDINGS: BONES: No acute fracture or dislocation. Postoperative changes in the femoral neck and proximal femur . HIP JOINT SPACES: Bilateral hip severe osteoarthritic changes. SACROILIAC JOINT SPACES/LUMBAR SPINE: The sacroiliac joint spaces are normal. Mild degenerative klein es of the visualized lower lumbar spine. PUBIC SYMPHYSIS: Normal. SOFT TISSUES: Normal. IMPRESSION: No acute osseous abnormality of the bilateral hips and pelvis. Reviewed, dictated and finalized at location A.
== END 2024-06-01 13:45 | disposition home or self-care (01) ==
LOC: CHSIMG 13:47
PROVIDERS: PCP Internal Medicine; Visit Provider Internal Medicine
DX: S39.93XA Unspecified injury of pelvis, initial encounter (principal)
CPT/HCPCS: 72100; 72220; 73521

== ENCOUNTER 2024-06-02 09:34 | Outpatient (CLI) | payer MEDICARE, SELFPAY ==
--- NOTE | ~2024-06-02 | CT_ITS ---
EXAMINATION: CT pelvis wo con DATE: 06/02/2024 10:20 INDICATION: Pelvic pain post fall with abnormal x-ray of the sacrum/coccyx TECHNIQUE: Computed tomography (CT) of the pelvis was performed without intravenous contrast. [place] l and coronal reconstructions were performed. Automated exposure control and iterative reconstruction technique were employed. The dose-length product was 441.51 mGy-cm. COMPARISON: Radiographs dated 06/01/2024 FINDINGS: Comminuted fractures of the sacrum with transverse fracture planes extending across the sacrum at the level of S3 and at S4-S5. The alignment remains near-anatomic with no displacement of the fracture a t S3 and with mild anterior displacement of a small fragment extending the across anterior cortex at level of S4-S5. No evident displacement of the bone along the margins of the sacral central canal or neural foramina. No other acute pelvic fractures. There is an old healed intratrochanteric fracture o f the proximal right femur which is fixed with a partially visualized antegrade intramedullary mimi an d a pair of interlocking femoral neck screws. 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 Mild osteoarthr itis at the bilateral hip and sacroiliac joints. Bladder, uterus and visualized lower pole the right kidney and visualized portions of bowels including the appendix are normal. There is mild stranding i n the presacral fat. No hematoma. No free fluid in the pelvis. No pathologically enlarged pelvic or i nguinal lymphadenopathy. IMPRESSION: 1. Comminuted fracture extending across the sacrum at the level of S3 and S4-S5 which remains in near -anatomic alignment. Reviewed, dictated and finalized at location B. IMPRESSION: 1. Comminuted fracture extending across the sacrum at the level of S3 and S4-S5 which remains in near-anatomic alignment.
[2024-06-02 09:49] LABS: Basophils Absolute Auto 0.09 K/mm3 (0.00-0.10); Basophils Percent Auto 0.9 % (0.0-1.0); Eosinophils Absolute Auto 0.14 K/mm3 (0.02-0.50); Eosinophils Percent Auto 1.5 % (1.0-6.0); Hematocrit 35.3 % (35.0-42.0); Hemoglobin 11.8 g/dL (11.7-13.8); Immature Granulocyte Absolute 0.04 K/mm3 (0.00-0.00); Immature Granulocyte Percent A 0.4 % (0.0-0.0); Lymphocytes Absolute Auto 1.37 K/mm3 (1.10-4.50); Lymphocytes Percent Auto 14.4 % (18.0-42.0); Mean Corpuscular HGB Conc 33.4 g/dL (32-36); Mean Corpuscular Hemoglobin 31.9 pg (27.0-31.0); Mean Corpuscular Volume 95.4 fL (78.0-102.0); Mean Platelet Volume 9.5 fl (9.2-11.8); Monocytes Absolute Auto 0.69 K/mm3 (0.10-0.90); Monocytes Percent Auto 7.2 % (2.0-11.0); Neutrophils Absolute Auto 7.21 K/mm3 (1.70-7.20); Neutrophils Percent Auto 75.6 % (50.0-70.0); Platelet Count Result 233 K/mm3 (150-420); Red Cell Distribution Width 11.9 % (11.6-14.4); White Blood Count 9.5 K/mm3 (4.8-10.8)
[2024-06-02 10:30] LABS: Alanine Aminotransferase 13 U/L (14-59); Albumin Level 3.8 g/dL (3.4-5.0); Alkaline Phosphatase 94 U/L (46-116); Anion Gap 11 mmol/L (4-12); Aspartate Amino Transferase 17 U/L (15-37); Bilirubin,Total 0.6 mg/dL (0.00-1.00); Blood Urea Nitrogen 25 mg/dL (7-18); Calcium 9.2 mg/dL (8.5-10.1); Carbon Dioxide 26 mmol/L (21-32); Chloride 103 mmol/L (98-108); Estimated Glomerular Filt Rate 41; Glucose 126 mg/dL (70-99); Osmolality Calculated 296 mOsm/kg (285-295); Potassium 3.7 mmol/L (3.5-5.1); Sodium 140 mmol/L (136-145); Total Protein 7.3 g/dL (6.4-8.2)
[2024-06-02 10:37] LABS: Add Urine Microscopic? NO; Appearance Urine Clear (Clear); Bilirubin Urine Negative (Negative); Blood Urine Negative (Negative); Color Urine Light Yellow (Yellow); Glucose Urine UA Negative (Negative); Ketones Urine Negative (Negative); Leukocyte Esterase Ur Negative LEU/UL (Negative); Nitrate Urine Negative (Negative); Protein Urine Negative (Negative); Urobilinogen Urine 0.2 mg/dL (0.2-1.0); pH Urine 6.5 (5.0-8.0)
== END 2024-06-02 09:35 | disposition home or self-care (01) ==
PROVIDERS: PCP Internal Medicine; Visit Provider Internal Medicine
DX: R32 Unspecified urinary incontinence (principal); I10 Essential (primary) hypertension; E83.52 Hypercalcemia
CPT/HCPCS: 36415; 72192; 80053; 81003; 85025

== ENCOUNTER 2024-11-24 11:43 | Outpatient (CLI) | payer MEDICARE, SELFPAY ==
--- NOTE | ~2024-11-24 | DEXA_ITS ---
Bone Density Report Name: MONSERRAT TORRES Age: 68 Sex: Female Ethnicity: White Date of : 1955 Indication: postmenopausal osteoporosis; parental hip fracture; height loss; prior fracture; Referring Provider: Yarelis Antoine Study: Bone densitometry was performed. Exam Date: November 24, 2024 Accession number: [id number] Bone Density: Region BMD T-score Z-score Classification AP Spine(L1-L4) 0.758 -2.6 -0.5 Osteoporosis Femoral Neck (Left) 0.536 -2.8 -1.0 Osteoporosis Total Hip (Left) 0.809 -1.1 0.5 Osteopenia World Health Organization criteria for BMD impression classify patients as: Normal (T-score at or above -1.0), Osteopenia (T-score between -1.0 and -2.5), or Osteoporosis (T-score at or below -2.5). 10-year Fracture Risk: FRAX not reported because: Some T-score for Spine Total or Hip Total or Femoral Neck at or below -2.5 Previous Exams: Region Exam Age BMD T-score BMD Change BMD Change Date g/cm2 vs Baseline vs Previous AP Spine (L1-L4) 11/24/2024 68 0.758 -2.6 -0.013 (-1.7%) -0.006 (-0.7%) 03/21/2023 67 0.764 -2.6 -0.008 (-1.0%) 0.002 (0.3%)# 12/06/2020 64 0.762 -2.6 -0.010 (-1.3%) 0.036 (5.0%)# 11/20/2018 62 0.725 -2.9 -0.046 (-5.9%) -0.046 (-5.9%) 11/14/2016 60 0.771 -2.5 Total Hip(Left) 11/24/2024 68 0.809 -1.1 0.018 (2.3%)# 0.041 (5.3%)# 03/21/2023 67 0.768 -1.4 -0.022 (-2.8%) -0.021 (-2.6%) 12/06/2020 64 0.789 -1.3 -0.002 (-0.2%) 0.027 (3.6%)# 11/20/2018 62 0.762 -1.5 -0.029 (-3.7%) -0.029 (-3.7%) 11/14/2016 60 0.791 -1.2 *Denotes significance at 95% confidence level, LSC for AP Spine = 0.022 g/cm2, LSC for Total Hip = 0.027 g/cm2 # Denotes dissimilar scan types or analysis methods Clinical Information Provided by Patient: Has had a low trauma fracture Parent has had a hip fracture Has used the following medications: Calcium Patient maximum height was 61 Menopause Age: 48 No regular weight bearing exercise Drinks caffeinated beverages Onset of menses at age 10 Number of children 0 Impression: The patient has established osteoporosis, based on the Left Femoral Neck T-score and the existence of a prior fracture. The patient has risk factors, including: parental hip fracture, previous fracture. No significant bone loss was observed. Discussion: HIGH RISK OF FRACTURE. BONE DENSITY IS UNDESIRABLY LOW AT ONE OR MORE SKELETAL SITES, CONSISTENT WITH POSTMENOPAUSAL OSTEOPOROSIS. This patient's lowest T-score, in a patient who has previously fractured, meets the World Health Organization's (WHO) criteria for severe osteoporosis. In untreated patients, the risk of osteoporotic fracture increases approximately two-fold for each 1.0 SD decrease in T-score. Low bone density is not the only risk factor for fracture; also consider factors such as patient's age, frailty or poor health, risk of falling, risk of injury, previous osteoporotic fracture, family history of osteoporosis, cigarette smoking, low body weight, etc. Not everyone with low bone mineral density has osteoporosis; osteomalacia and other metabolic bone disorders should also be considered. Patients who have osteoporosis should be evaluated for specific diseases and conditions (secondary causes) that may cause or contribute to bone loss. The [place] [employer]ocr[employer] (AACE) and National Osteoporosis Foundation (NOF) recommend pharmacologic intervention for all postmenopausal women whose T-score is in this range. The patient should follow a healthful lifestyle (good nutrition with adequate calcium and vitamin D, and appropriate weight-bearing exercise). Follow-Up: Consider a repeat BMD and Vertebral Fracture Assessment (VFA) exam in 2 years or sooner if medically necessary, to reassess this patient's status. Reported by: FLORENTIN on 11/24/2024 12:13:00 PM. Reviewed, dictated and finalized at location A.
== END 2024-11-24 11:44 | disposition home or self-care (01) ==
PROVIDERS: PCP Internal Medicine; Visit Provider Internal Medicine
DX: M81.0 Age-related osteoporosis without current pathological fracture (principal); M85.88 Other specified disorders of bone density and structure, other site
CPT/HCPCS: 77080

== ENCOUNTER 2025-01-08 09:49 | Outpatient (CLI) | payer MEDICARE, SELFPAY ==
[2025-01-08 10:10] VITALS: BP 135/68; PULSE 68; RESP 14; TEMP 36.6; O2SAT 97; BMI 31.1
[2025-01-08] MEDS: ZOLEDRONIC ACID 5 MG/100 ML 100 ML 400 MG IVPB (10:16)
[2025-01-08 10:40] VITALS: BP 132/68; PULSE 68
--- NOTE | 2025-01-08 10:41 | PC.NURSE ---
Patient tolerated Reclast infusion well. SEE MAR/patient care notes.
== END 2025-01-08 09:50 | disposition home or self-care (01) ==
PROVIDERS: PCP Internal Medicine; Visit Provider Internal Medicine
DX: M81.0 Age-related osteoporosis without current pathological fracture (principal)
CPT/HCPCS: 96374; J3489